=== PATIENT | female | born 2000 | race Native Hawaiian/Other Pacific Islander ===

== ENCOUNTER 2022-04-10 14:44 | Inpatient (IN) | payer OTHER, SELFPAY ==
--- NOTE | 2022-04-10 | ECG_ITS ---
Test Reason : med clearance Blood Pressure : / mmHG Vent. Rate : 064 BPM Atrial Rate : 064 BPM P-R Int : 126 ms QRS Dur : 102 ms QT Int : 446 ms P-R-T Axes : 000 088 057 degrees QTc Int : 460 ms Normal sinus rhythm Normal ECG No previous ECGs available Referred By: Saulo Aguero Electronically Signed By:Vinicius Beck
--- NOTE | 2022-04-10 14:49 | MHC.CARE ---
Dee Dee w [facility] [phone] calls in Expect for Suni Morano 02?? BIBA [address] though cooperative? SI worsening, executive functioning impaired by what Dee Dee describes as a severe eating d/o Hopeless, depressed Googling drugs to use to self euthanize, seeking drugs compatible w the ones animals get Wakes disappointed she hasn?t ? Grades are good, school hasnt been able to force medical leave? She sees Dee Dee for therapy, has [employer], and [facility] monitoring her She is dissociative, scores high for derealization and depersonalization Often smiles, cheerful seeming but describes feeling nothing Has no hx of attempts Has hx of ideation of stepping into traffic and has practiced this via standing on sidewalk and counting cars and trying to determine how successful this attempt method would be She is describes as purging upwards of 20x a day, patient states she overeats, though Dee Dee describes is as a full meal, rather than overeating Her weight is low but her labs tend to be 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
[2022-04-10 14:57] VITALS: BP 126/80; PULSE 68; O2SAT 99
[2022-04-10 15:10] VITALS: BP 117/72; PULSE 83; RESP 18; TEMP 37.1; O2SAT 99; BMI 18.4
--- NOTE | 2022-04-10 15:19 | ED_ITS ---
HPI - Psych General Chief Complaint: Psychiatric Symptoms <Annemarie Murcia NP - Last Filed: 04/10/22 16:35> Stated Complaint: sec 12,si w/plan <Annemarie Murcia NP - Last Filed: 04/10/22 16:35> Time Seen by Provider: 04/10/22 15:07 <Annemarie Murcia NP - Last Filed: 04/10/22 16:35> Source: patient and EMS <Annemarie Murcia NP - Last Filed: 04/10/22 16:35> Mode of arrival: EMS <Annemarie Murcia NP - Last Filed: 04/10/22 16:35> Limitations: no limitations <Annemarie Murcia NP - Last Filed: 04/10/22 16:35> History of Present Illness HPI Narrative: 22-year-old female with a history of anxiety and depression presents to the ER on a Section 12 with complaints of feeling depressed. Patient reports she was recently started on Zoloft. Patient denies suicidal or homicidal ideations. No hallucinations. No substance use. No physical complaints. Per Section 12 there is concerned that patient made suicidal statements and that she was googling medications on how to end her life <Annemarie Murcia NP - Last Filed: 04/10/22 16:35> Related Data Home Medications: Home Medications Medication Instructions Recorded Confirmed sertraline 50 mg tablet 50 mg PO DAILY 04/10/22 04/10/22 spironolactone 100 mg tablet 100 mg PO DAILY 04/10/22 04/10/22 <Annemarie Murcia NP - Last Filed: 04/10/22 16:35> Allergies/Adverse Reactions: Allergies Allergy/AdvReac Type Severity Reaction Status Date / Time pollen extracts Allergy Mild Watery Eye Verified 04/10/22 19:25 <Annemarie Murcia NP - Last Filed: 04/10/22 16:35> Review of Systems Review of Systems: Yes all other systems are reviewed and are negative <Annemarie Murcia NP - Last Filed: 04/10/22 16:35> Constitutional: Constitutional: Reports no additional constitutional complaints, Denies body ache(s), Denies chills, Denies fever(s), Denies headache(s) and Denies weakness <Annemarie Murcia PEDIATRIC ANESTHESIOLOGIST - Last Filed: 04/10/22 16:35> Eyes: Eyes: Reports no additional eye complaints and Denies change in vision <Annemarie Murcia PEDIATRIC ANESTHESIOLOGIST - Last Filed: 04/10/22 16:35> ENT: Reports system reviewed and no additional complaints, except as documented, Denies dizziness, Denies headache(s), Denies nasal congestion, Denies nasal discharge and Denies neck pain <Annemarie Murcia PEDIATRIC ANESTHESIOLOGIST - Last Filed: 04/10/22 16:35> Cardiovascular: Cardiovascular: Reports no additional cardiovascular complaints, Denies chest pain, Denies leg edema and Denies dyspnea <Annemarie Murcia PEDIATRIC ANESTHESIOLOGIST - Last Filed: 04/10/22 16:35> Respiratory: Respiratory: Reports no additional respiratory complaints, Denies cough and Denies dyspnea <Annemarie Murcia PEDIATRIC ANESTHESIOLOGIST - Last Filed: 04/10/22 16:35> Gastrointestinal: Gastrointestinal: Reports no additional gastrointestinal co mplaints, Denies abdominal pain, Denies diarrhea, Denies nausea and Denies vomiting <Annemarie Murcia PEDIATRIC ANESTHESIOLOGIST - Last Filed: 04/10/22 16:35> Genitourinary: Genitourinary: Reports no additional female genitourinary complaints and Denies urinary incontinence <Annemarie Murcia, PEDIATRIC ANESTHESIOLOGIST - Last Filed: 04/10/22 16:35> Musculoskeletal: Musculoskeletal: Reports no additional musculoskeletal complaints, Denies back pain, Denies arthralgias, Denies joint swelling, Denies neck pain, Denies numbness and Denies tingling <Annemarie Murcia PEDIATRIC ANESTHESIOLOGIST - Last Filed: 04/10/22 16:35> Integumentary/Breasts: Skin/Breast: Reports system reviewed and no additional complaints, except as docu and Denies rash <Annemarie Murcia PEDIATRIC ANESTHESIOLOGIST - Last Filed: 04/10/22 16:35> Neurologic: Reports system reviewed and no additional complaints, except as documented, Denies Abnormal speech present, Denies dizziness, Denies headache(s), Denies numbness, Denies tingling and Denies weakness <Annemarie Murcia NP - Last Filed: 04/10/22 16:35> Psychiatric: Psychiatric: Denies anxiety, Reports depression, Denies homicidal ideation and Denies suicidal ideation <Annemarie Murcia NP - Last Filed: 04/10/22 16:35> [facility] Past Medical History Attestation statement: The following information was validated with the patient. <Annemarie Murcia NP - Last Filed: 04/10/22 16:35> Source: old records reviewed and nursing notes reviewed <Annemarie Murcia NP - Last Filed: 04/10/22 16:35> Social History Social History: Social History Household Members: Other Household Members Other:: roommate Housing: Other Housing Other:: dormitory Do you presently have visiting nurse or other home services: No Patient Tobacco Use Status: Never used Tobacco Smoked in Last 30 Days: Yes Frequency of e-Cigarette/Vaping Use: social at parties at school Patient Interested in Nicotine Replacement: No Patient Given Instructions on How to Stop Smoking: Yes Date Education Initiated: 04/10/22 Use of substances other than those prescribed or required for medical reasons: No Currently Displaying Signs/Symptoms of Drug Intoxication Withdrawal: No Have you been hit, kicked, punched, or otherwise hurt by someone within the past year? If so, by whom?: No Do you feel safe in your current relationship?: No Current Relationship Is there a partner from a previous relationship who is making you feel unsafe now?: No Are you made to feel afraid or neglected: No Advance Directives: No Advance Directives Information Provided: No Healthcare Proxy: No Guardian: No Do you have thoughts of harming others: None Do you have a plan to hurt others: No Plan Recently lost weight without trying: No Nutrition Risks: Anorexia and Binging/Purging Patient : No : No Poor oral hygiene: No service: No Sexual orientation: Decline to Answer <Annemarie Murcia NP - Last Filed: 04/10/22 16:35> Physical Exam Vital Signs: Vital Signs: Last Vital Signs Temp 97.9 F 04/12/22 06:00 Pulse 78 04/12/22 06:00 Resp 18 04/12/22 06:00 BP 107/62 04/12/22 06:00 Pulse Ox 99 04/12/22 06:00 O2 Del Method 04/12/22 06:00 BMI result Body Mass Index 18.4 <Annemarie Murcia NP - Last Filed: 04/10/22 16:35> Vital Signs: Last Vital Signs Temp 97.9 F 04/12/22 06:00 Pulse 78 04/12/22 06:00 Resp 18 04/12/22 06:00 BP 107/62 04/12/22 06:00 Pulse Ox 99 04/12/22 06:00 O2 Del Method 04/12/22 06:00 BMI result Body Mass Index 18.4 <Eitan Dow MD - Last Filed: 04/17/22 16:19> Const: General: cooperative, healthy appearing, comfortable and no acute distress <Annemarie Murcia NP - Last Filed: 04/10/22 16:35> Orientation/consciousness: patient oriented x3 <Annemarie Murcia NP - Last Filed: 04/10/22 16:35> Limitations: no limitations <Annemarie Murcia NP - Last Filed: 04/10/22 16:35> HEENT: Head: Yes normal to inspection <Annemarie Murcia NP - Last Filed: 04/10/22 16:35> Ears: hearing grossly normal bilaterally <Annemarie Murcia NP - Last Filed: 04/10/22 16:35> General nose exam: Normal external nose present <Annemarie Murcia NP - Last Filed: 04/10/22 16:35> Face and sinus: Yes normal facial exam <Annemarie Murcia NP - Last Filed: 04/10/22 16:35> Mouth: Normal oral and palatal mucosa present <Annemarie Murcia NP - Last Filed: 04/10/22 16:35> Throat: Yes posterior oropharynx normal <Annemarie Murcia NP - Last Filed: 04/10/22 16:35> Eyes: General: appearance normal, both eyes and all related structures <Annemarie Murcia NP - Last Filed: 04/10/22 16:35> Pupils: Equal, round and reactive pupils present <Annemarie Murcia PEDIATRIC ANESTHESIOLOGIST - Last Filed: 04/10/22 16:35> Neck: Neck: Yes normal visual inspection <Annemarie Murcia PEDIATRIC ANESTHESIOLOGIST - Last Filed: 04/10/22 16:35> Chest: Chest palpation & inspection: normal inspection of the chest <Annemarie Murcia PEDIATRIC ANESTHESIOLOGIST - Last Filed: 04/10/22 16:35> Resp: Effort & Inspection: normal respiratory effort <Annemarie Murcia PEDIATRIC ANESTHESIOLOGIST - Last Filed: 04/10/22 16:35> Auscultation: clear to auscultation bilaterally <Annemarie Murcia PEDIATRIC ANESTHESIOLOGIST - Last Filed: 04/10/22 16:35> Cardio: Rate: regular rate <Annemarie Murcia PEDIATRIC ANESTHESIOLOGIST - Last Filed: 04/10/22 16:35> Rhythm: regular rhythm <Annemarie Murcia PEDIATRIC ANESTHESIOLOGIST - Last Filed: 04/10/22 16:35> Peripheral pulses: Peripheral pulses 2+ throughout <Annemarie Murcia PEDIATRIC ANESTHESIOLOGIST - Last Filed: 04/10/22 16:35> GI: Inspection: Yes normal to inspection <Annemarie Murcia PEDIATRIC ANESTHESIOLOGIST - Last Filed: 04/10/22 16:35> Palpation (GI): Soft to palpation and nontender <Annemarie Murcia PEDIATRIC ANESTHESIOLOGIST - Last Filed: 04/10/22 16:35> Auscultation: normal bowel sounds <Annemarie Murcia PEDIATRIC ANESTHESIOLOGIST - Last Filed: 04/10/22 16:35> Back/Spine/Pelvis: Thoracic/Lumbar Spine: thoracic and lumbar spine normal to inspection <Annemarie Murcia PEDIATRIC ANESTHESIOLOGIST - Last Filed: 04/10/22 16:35> Skin: General skin exam: no rashes or lesions noted <Annemarie Murcia PEDIATRIC ANESTHESIOLOGIST - Last Filed: 04/10/22 16:35> Neuro: General: patient oriented x3, no focal motor deficits and normal sensation to monofilament <Annemarie Murcia PEDIATRIC ANESTHESIOLOGIST - Last Filed: 04/10/22 16:35> Cranial nerves: Yes Equal, round and reactive pupils present <Annemarie Murcia PEDIATRIC ANESTHESIOLOGIST - Last Filed: 04/10/22 16:35> Cognition (Neuro): normal cognition <Annemarie Murcia NP - Last Filed: 04/10/22 16:35> Speech: No Abnormal speech present <Annemarie Murcia NP - Last Filed: 04/10/22 16:35> Gait exam (Neuro): Normal gait present <Annemarie Murcia NP - Last Filed: 04/10/22 16:35> Motor exam (neuro): 5/5 motor strength present throughout <Annemarie Murcia NP - Last Filed: 04/10/22 16:35> Extrem: General: Yes normal to inspection <Annemarie Murcia NP - Last Filed: 04/10/22 16:35> Course Course Course Narrative: Reviewed labs. Patient pending crisis consultation <Annemarie Murcia NP - Last Filed: 04/10/22 16:35> Reevaluation(s) Reevaluation #1: 1800-patient placed in physician observation pending disposition <Annemarie Murcia NP - Last Filed: 04/10/22 16:35> Medications Administered Discontinued Medications Generic Name Dose Route Start Last Admin Trade Name Freq PRN Reason Stop Dose Admin Sertraline HCl 50 mg 04/11/22 14:40 04/12/22 09:39 Sertraline Hcl 50 Mg Tablet PO 50 mg DAILY LAKSHMI Administration Trazodone HCl 50 mg 04/11/22 21:00 04/11/22 22:39 Trazodone Hcl 50 Mg Tablet PO Not Given BEDTIME LAKSHMI <Annemarie Murcia NP - Last Filed: 04/10/22 16:35> Medications Administered Discontinued Medications Generic Name Dose Route Start Last Admin Trade Name Freq PRN Reason Stop Dose Admin Sertraline HCl 50 mg 04/11/22 14:40 04/12/22 09:39 Sertraline Hcl 50 Mg Tablet PO 50 mg DAILY LAKSHMI Administration Trazodone HCl 50 mg 04/11/22 21:00 04/11/22 22:39 Trazodone Hcl 50 Mg Tablet PO Not Given BEDTIME LAKSHMI <Eitan Dow MD - Last Filed: 04/17/22 16:19> Medical Decision Making Medical Decision Making MDM Narrative: 22-year-old female here on a Section 12. Patient denies SI but there is concern for SI on the Section 12. No concern for acute ingestion or trauma No physical complaints Obtain labs, drug screen, COVID screen Once medically cleared will need crisis consultation <Annemarie Murcia NP - Last Filed: 04/10/22 16:35> Differential Diagnosis Differential Diagnoses: The differential diagnosis associated with the presentation includes <Annemarie Murcia NP - Last Filed: 04/10/22 16:35> Depression <Annemarie Murcia NP - Last Filed: 04/10/22 16:35> Consult Healthcare Provider Management of the patient was discussed with: Behavioral Health Provider <Annemarie Murcia NP - Last Filed: 04/10/22 16:35> Lab Data [facility] Lab Attestation statement: I reviewed the patient's lab results. <Annemarie Murcia NP - Last Filed: 04/10/22 16:35> Result Diagrams: 04/10/22 15:57 04/10/22 15:57 <Annmearie Murcia NP - Last Filed: 04/10/22 16:35> Labs: Lab Results 04/10/22 04/10/22 04/10/22 Range/Units 15:12 15:12 15:12 WBC (4.8-10.8) X10*3/uL RBC (4.20-5.50) X10*6/uL Hgb (12.0-16.0) g/dl Hct (37.0-47.0) % MCV (80.0-98.0) fL MCH (27.0-33.0) pg MCHC (31.0-35.0) g/dl RDW (11.0-16.0) % Plt Count (160-400) X10*3/uL MPV (9.4-12.3) fL Absolute Nucleated RBC (0.0-0.012) X10*3/uL Nucleated RBC % (auto) (0.0-0.2) /100WBC Neutrophils % (Manual) (45-73) % Band Neutrophils % (3-5) % Lymphocytes % (Manual) (20-40) % Monocytes % (Manual) (2-11) % Eosinophils % (Manual) (0-4) % Abs Neuts (Manual) (2.0-8.3) X10*3/uL Lymphocytes # (Manual) (1.2-4.9) X10*3/uL Monocytes # (Manual) (0.1-1.2) X10*3/uL Platelet Estimate (NORMAL) Plt Morphology Comment RBC Morphology Basophilic Stippling /OIF Ethel Cells /OIF Acanthocytes (Spur) /OIF Sodium (135-145) mmol/L Potassium (3.3-5.1) mmol/L Chloride (96-108) mmol/L Carbon Dioxide (22-29) mmol/L Anion Gap (12-20) BUN (9-16) mg/dL Creatinine (0.5-1.4) mg/dL Estim Creat Clear Calc Estimated GFR Random Glucose (60-115) mg/dL Calcium (8.4-10.2) mg/dL Total Bilirubin (0.0-1.0) mg/dL AST (5-31) U/L ALT (0-31) U/L Alkaline Phosphatase (39-117) U/L Total Protein (6.5-8.0) g/dL Albumin (3.5-5.0) g/dL Urine Color Yellow Urine Appearance Turbid Urine pH 8.5 (5.0-9.0) Ur Specific [place] 1.020 (1.005-1.025) Urine Protein Trace (Neg-Trace) mg/dL Urine Glucose (UA) Negative (Negative) mg/dL Urine Ketones Negative (Negative) mg/dL Urine Blood Negative (Negative) Urine Nitrite Negative (Negative) Ur Leukocyte Esterase Trace H (Negative) Urine RBC 0-2 (0-2) /HPF Urine WBC 0-5 (0-5) /HPF Ur Squamous Epith Cells 3-5 (0-2) /HPF Urine Bacteria None Seen (None Seen) Hyaline Casts 0-2 (0-2) /LPF Urine Test NEGATIVE (NEGATIVE) Salicylates (15-30) mg/dL Urine Opiates Screen Not Detected (Not Detect) Urine Fentanyl Screen Not Detected (Not Detect) Acetaminophen (<30) mcg/mL Ur Barbiturates Screen Not Detected (Not Detect) Ur Phencyclidine Scrn Not Detected (Not Detect) Ur Amphetamines Screen Not Detected (Not Detect) U Benzodiazepines Scrn Not Detected (Not Detect) Urine Cocaine Screen Not Detected (Not Detect) U Marijuana (THC) Screen Not Detected (Not Detect) Ethyl Alcohol mg/dL COVID-19 (EDITA) (Negative) COVID-19 Clin Com 04/10/22 04/10/22 04/10/22 Range/Units 15:22 15:57 15:57 WBC 4.2 L (4.8-10.8) X10*3/uL RBC 4.06 L (4.20-5.50) X10*6/uL Hgb 12.1 (12.0-16.0) g/dl Hct 34.9 L (37.0-47.0) % MCV 86.0 (80.0-98.0) fL MCH 29.8 (27.0-33.0) pg MCHC 34.7 (31.0-35.0) g/dl RDW 11.8 (11.0-16.0) % Plt Count 244 (160-400) X10*3/uL MPV 9.8 (9.4-12.3) fL Absolute Nucleated RBC 0.000 (0.0-0.012) X10*3/uL Nucleated RBC % (auto) 0.0 (0.0-0.2) /100WBC Neutrophils % (Manual) 63 (45-73) % Band Neutrophils % 1 L (3-5) % Lymphocytes % (Manual) 32 (20-40) % Monocytes % (Manual) 3 (2-11) % Eosinophils % (Manual) 1 (0-4) % Abs Neuts (Manual) 2.7 (2.0-8.3) X10*3/uL Lymphocytes # (Manual) 1.3 (1.2-4.9) X10*3/uL Monocytes # (Manual) 0.1 (0.1-1.2) X10*3/uL Platelet Estimate NORMAL (NORMAL) Plt Morphology Comment NORMAL RBC Morphology NOTED Basophilic Stippling 1+ (0-2) /OIF Roxi Cells 1+ (0-2) /OIF Acanthocytes (Spur) 1+ (0-2) /OIF Sodium 141 (135-145) mmol/L Potassium 4.2 (3.3-5.1) mmol/L Chloride 107 (96-108) mmol/L Carbon Dioxide 27 (22-29) mmol/L Anion Gap 11 L (12-20) BUN 10 (9-16) mg/dL Creatinine 0.86 (0.5-1.4) mg/dL Estim Creat Clear Calc 75.2 Estimated GFR > 60 Random Glucose 91 (60-115) mg/dL Calcium 9.5 (8.4-10.2) mg/dL Total Bilirubin 1.4 H (0.0-1.0) mg/dL AST 17 (5-31) U/L ALT 12 (0-31) U/L Alkaline Phosphatase 35 L (39-117) U/L Total Protein 7.2 (6.5-8.0) g/dL Albumin 4.6 (3.5-5.0) g/dL Urine Color Urine Appearance Urine pH (5.0-9.0) Ur Specific [place] (1.005-1.025) Urine Protein (Neg-Trace) mg/dL Urine Glucose (UA) (Negative) mg/dL Urine Ketones (Negative) mg/dL Urine Blood (Negative) Urine Nitrite (Negative) Ur Leukocyte Esterase (Negative) Urine RBC (0-2) /HPF Urine WBC (0-5) /HPF Ur Squamous Epith Cells (0-2) /HPF Urine Bacteria (None Seen) Hyaline Casts (0-2) /LPF Urine Test (NEGATIVE) Salicylates (15-30) mg/dL Urine Opiates Screen (Not Detect) Urine Fentanyl Screen (Not Detect) Acetaminophen (<30) mcg/mL Ur Barbiturates Screen (Not Detect) Ur Phencyclidine Scrn (Not Detect) Ur Amphetamines Screen (Not Detect) U Benzodiazepines Scrn (Not Detect) Urine Cocaine Screen (Not Detect) U Marijuana (THC) Screen (Not Detect) Ethyl Alcohol < 10 mg/dL COVID-19 (EDITA) Negative (Negative) COVID-19 Clin Com See Note 04/10/22 Range/Units 15:57 WBC (4.8-10.8) X10*3/uL RBC (4.20-5.50) X10*6/uL Hgb (12.0-16.0) g/dl Hct (37.0-47.0) % MCV (80.0-98.0) fL MCH (27.0-33.0) pg MCHC (31.0-35.0) g/dl RDW (11.0-16.0) % Plt Count (160-400) X10*3/uL MPV (9.4-12.3) fL Absolute Nucleated RBC (0.0-0.012) X10*3/uL Nucleated RBC % (auto) (0.0-0.2) /100WBC Neutrophils % (Manual) (45-73) % Band Neutrophils % (3-5) % Lymphocytes % (Manual) (20-40) % Monocytes % (Manual) (2-11) % Eosinophils % (Manual) (0-4) % Abs Neuts (Manual) (2.0-8.3) X10*3/uL Lymphocytes # (Manual) (1.2-4.9) X10*3/uL Monocytes # (Manual) (0.1-1.2) X10*3/uL Platelet Estimate (NORMAL) Plt Morphology Comment RBC Morphology Basophilic Stippling /OIF Ethel Cells /OIF Acanthocytes (Spur) /OIF Sodium (135-145) mmol/L Potassium (3.3-5.1) mmol/L Chloride (96-108) mmol/L Carbon Dioxide (22-29) mmol/L Anion Gap (12-20) BUN (9-16) mg/dL Creatinine (0.5-1.4) mg/dL Estim Creat Clear Calc Estimated GFR Random Glucose (60-115) mg/dL Calcium (8.4-10.2) mg/dL Total Bilirubin (0.0-1.0) mg/dL AST (5-31) U/L ALT (0-31) U/L Alkaline Phosphatase (39-117) U/L Total Protein (6.5-8.0) g/dL Albumin (3.5-5.0) g/dL Urine Color Urine Appearance Urine pH (5.0-9.0) Ur Specific [place] (1.005-1.025) Urine Protein (Neg-Trace) mg/dL Urine Glucose (UA) (Negative) mg/dL Urine Ketones (Negative) mg/dL Urine Blood (Negative) Urine Nitrite (Negative) Ur Leukocyte Esterase (Negative) Urine RBC (0-2) /HPF Urine WBC (0-5) /HPF Ur Squamous Epith Cells (0-2) /HPF Urine Bacteria (None Seen) Hyaline Casts (0-2) /LPF Urine Test (NEGATIVE) Salicylates < 5.0 L (15-30) mg/dL Urine Opiates Screen (Not Detect) Urine Fentanyl Screen (Not Detect) Acetaminophen < 17 (<30) mcg/mL Ur Barbiturates Screen (Not Detect) Ur Phencyclidine Scrn (Not Detect) Ur Amphetamines Screen (Not Detect) U Benzodiazepines Scrn (Not Detect) Urine Cocaine Screen (Not Detect) U Marijuana (THC) Screen (Not Detect) Ethyl Alcohol mg/dL COVID-19 (EDITA) (Negative) COVID-19 Clin Com <Annemarie Murcia, PEDIATRIC ANESTHESIOLOGIST - Last Filed: 04/10/22 16:35> Lab Results 04/10/22 04/10/22 04/10/22 Range/Units 15:12 15:12 15:12 WBC (4.8-10.8) X10*3/uL RBC (4.20-5.50) X10*6/uL Hgb (12.0-16.0) g/dl Hct (37.0-47.0) % MCV (80.0-98.0) fL MCH (27.0-33.0) pg MCHC (31.0-35.0) g/dl RDW (11.0-16.0) % Plt Count (160-400) X10*3/uL MPV (9.4-12.3) fL Absolute Nucleated RBC (0.0-0.012) X10*3/uL Nucleated RBC % (auto) (0.0-0.2) /100WBC Neutrophils % (Manual) (45-73) % Band Neutrophils % (3-5) % Lymphocytes % (Manual) (20-40) % Monocytes % (Manual) (2-11) % Eosinophils % (Manual) (0-4) % Abs Neuts (Manual) (2.0-8.3) X10*3/uL Lymphocytes # (Manual) (1.2-4.9) X10*3/uL Monocytes # (Manual) (0.1-1.2) X10*3/uL Platelet Estimate (NORMAL) Plt Morphology Comment RBC Morphology Basophilic Stippling /OIF Roxi Cells /OIF Acanthocytes (Spur) /OIF Sodium (135-145) mmol/L Potassium (3.3-5.1) mmol/L Chloride (96-108) mmol/L Carbon Dioxide (22-29) mmol/L Anion Gap (12-20) BUN (9-16) mg/dL Creatinine (0.5-1.4) mg/dL Estim Creat Clear Calc Estimated GFR Random Glucose (60-115) mg/dL Calcium (8.4-10.2) mg/dL Total Bilirubin (0.0-1.0) mg/dL AST (5-31) U/L ALT (0-31) U/L Alkaline Phosphatase (39-117) U/L Total Protein (6.5-8.0) g/dL Albumin (3.5-5.0) g/dL Urine Color Yellow Urine Appearance Turbid Urine pH 8.5 (5.0-9.0) Ur Specific [place] 1.020 (1.005-1.025) Urine Protein Trace (Neg-Trace) mg/dL Urine Glucose (UA) Negative (Negative) mg/dL Urine Ketones Negative (Negative) mg/dL Urine Blood Negative (Negative) Urine Nitrite Negative (Negative) Ur Leukocyte Esterase Trace H (Negative) Urine RBC 0-2 (0-2) /HPF Urine WBC 0-5 (0-5) /HPF Ur Squamous Epith Cells 3-5 (0-2) /HPF Urine Bacteria None Seen (None Seen) Hyaline Casts 0-2 (0-2) /LPF Urine Test NEGATIVE (NEGATIVE) Salicylates (15-30) mg/dL Urine Opiates Screen Not Detected (Not Detect) Urine Fentanyl Screen Not Detected (Not Detect) Acetaminophen (<30) mcg/mL Ur Barbiturates Screen Not Detected (Not Detect) Ur Phencyclidine Scrn Not Detected (Not Detect) Ur Amphetamines Screen Not Detected (Not Detect) U Benzodiazepines Scrn Not Detected (Not Detect) Urine Cocaine Screen Not Detected (Not Detect) U Marijuana (THC) Screen Not Detected (Not Detect) Ethyl Alcohol mg/dL COVID-19 (EDITA) (Negative) COVID-19 Clin Com 04/10/22 04/10/22 04/10/22 Range/Units 15:22 15:57 15:57 WBC 4.2 L (4.8-10.8) X10*3/uL RBC 4.06 L (4.20-5.50) X10*6/uL Hgb 12.1 (12.0-16.0) g/dl Hct 34.9 L (37.0-47.0) % MCV 86.0 (80.0-98.0) fL MCH 29.8 (27.0-33.0) pg MCHC 34.7 (31.0-35.0) g/dl RDW 11.8 (11.0-16.0) % Plt Count 244 (160-400) X10*3/uL MPV 9.8 (9.4-12.3) fL Absolute Nucleated RBC 0.000 (0.0-0.012) X10*3/uL Nucleated RBC % (auto) 0.0 (0.0-0.2) /100WBC Neutrophils % (Manual) 63 (45-73) % Band Neutrophils % 1 L (3-5) % Lymphocytes % (Manual) 32 (20-40) % Monocytes % (Manual) 3 (2-11) % Eosinophils % (Manual) 1 (0-4) % Abs Neuts (Manual) 2.7 (2.0-8.3) X10*3/uL Lymphocytes # (Manual) 1.3 (1.2-4.9) X10*3/uL Monocytes # (Manual) 0.1 (0.1-1.2) X10*3/uL Platelet Estimate NORMAL (NORMAL) Plt Morphology Comment NORMAL RBC Morphology NOTED Basophilic Stippling 1+ (0-2) /OIF Roxi Cells 1+ (0-2) /OIF Acanthocytes (Spur) 1+ (0-2) /OIF Sodium 141 (135-145) mmol/L Potassium 4.2 (3.3-5.1) mmol/L Chloride 107 (96-108) mmol/L Carbon Dioxide 27 (22-29) mmol/L Anion Gap 11 L (12-20) BUN 10 (9-16) mg/dL Creatinine 0.86 (0.5-1.4) mg/dL Estim Creat Clear Calc 75.2 Estimated GFR > 60 Random Glucose 91 (60-115) mg/dL Calcium 9.5 (8.4-10.2) mg/dL Total Bilirubin 1.4 H (0.0-1.0) mg/dL AST 17 (5-31) U/L ALT 12 (0-31) U/L Alkaline Phosphatase 35 L (39-117) U/L Total Protein 7.2 (6.5-8.0) g/dL Albumin 4.6 (3.5-5.0) g/dL Urine Color Urine Appearance Urine pH (5.0-9.0) Ur Specific [place] (1.005-1.025) Urine Protein (Neg-Trace) mg/dL Urine Glucose (UA) (Negative) mg/dL Urine Ketones (Negative) mg/dL Urine Blood (Negative) Urine Nitrite (Negative) Ur Leukocyte Esterase (Negative) Urine RBC (0-2) /HPF Urine WBC (0-5) /HPF Ur Squamous Epith Cells (0-2) /HPF Urine Bacteria (None Seen) Hyaline Casts (0-2) /LPF Urine Test (NEGATIVE) Salicylates (15-30) mg/dL Urine Opiates Screen (Not Detect) Urine Fentanyl Screen (Not Detect) Acetaminophen (<30) mcg/mL Ur Barbiturates Screen (Not Detect) Ur Phencyclidine Scrn (Not Detect) Ur Amphetamines Screen (Not Detect) U Benzodiazepines Scrn (Not Detect) Urine Cocaine Screen (Not Detect) U Marijuana (THC) Screen (Not Detect) Ethyl Alcohol < 10 mg/dL COVID-19 (EDITA) Negative (Negative) COVID-19 Clin Com See Note 04/10/22 Range/Units 15:57 WBC (4.8-10.8) X10*3/uL RBC (4.20-5.50) X10*6/uL Hgb (12.0-16.0) g/dl Hct (37.0-47.0) % MCV (80.0-98.0) fL MCH (27.0-33.0) pg MCHC (31.0-35.0) g/dl RDW (11.0-16.0) % Plt Count (160-400) X10*3/uL MPV (9.4-12.3) fL Absolute Nucleated RBC (0.0-0.012) X10*3/uL Nucleated RBC % (auto) (0.0-0.2) /100WBC Neutrophils % (Manual) (45-73) % Band Neutrophils % (3-5) % Lymphocytes % (Manual) (20-40) % Monocytes % (Manual) (2-11) % Eosinophils % (Manual) (0-4) % Abs Neuts (Manual) (2.0-8.3) X10*3/uL Lymphocytes # (Manual) (1.2-4.9) X10*3/uL Monocytes # (Manual) (0.1-1.2) X10*3/uL Platelet Estimate (NORMAL) Plt Morphology Comment RBC Morphology Basophilic Stippling /OIF Ethel Cells /OIF Acanthocytes (Spur) /OIF Sodium (135-145) mmol/L Potassium (3.3-5.1) mmol/L Chloride (96-108) mmol/L Carbon Dioxide (22-29) mmol/L Anion Gap (12-20) BUN (9-16) mg/dL Creatinine (0.5-1.4) mg/dL Estim Creat Clear Calc Estimated GFR Random Glucose (60-115) mg/dL Calcium (8.4-10.2) mg/dL Total Bilirubin (0.0-1.0) mg/dL AST (5-31) U/L ALT (0-31) U/L Alkaline Phosphatase (39-117) U/L Total Protein (6.5-8.0) g/dL Albumin (3.5-5.0) g/dL Urine Color Urine Appearance Urine pH (5.0-9.0) Ur Specific [place] (1.005-1.025) Urine Protein (Neg-Trace) mg/dL Urine Glucose (UA) (Negative) mg/dL Urine Ketones (Negative) mg/dL Urine Blood (Negative) Urine Nitrite (Negative) Ur Leukocyte Esterase (Negative) Urine RBC (0-2) /HPF Urine WBC (0-5) /HPF Ur Squamous Epith Cells (0-2) /HPF Urine Bacteria (None Seen) Hyaline Casts (0-2) /LPF Urine Test (NEGATIVE) Salicylates < 5.0 L (15-30) mg/dL Urine Opiates Screen (Not Detect) Urine Fentanyl Screen (Not Detect) Acetaminophen < 17 (<30) mcg/mL Ur Barbiturates Screen (Not Detect) Ur Phencyclidine Scrn (Not Detect) Ur Amphetamines Screen (Not Detect) U Benzodiazepines Scrn (Not Detect) Urine Cocaine Screen (Not Detect) U Marijuana (THC) Screen (Not Detect) Ethyl Alcohol mg/dL COVID-19 (EDITA) (Negative) COVID-19 Clin Com <Eitan Dow MD - Last Filed: 04/17/22 16:19> Independent Historian Clinical information obtained from an independent historian. History obtained from or confirmed by: EMS <Annemarie Murcia NP - Last Filed: 04/10/22 16:35> External Record Review Patient coming in on Section 12. Reviewed report <Annemarie Murcia NP - Last Filed: 04/10/22 16:35> Attestation Attending Attestation: I reviewed GENERAL LABORER/PA/Resident note, assessment and plan. I agree with the documentation, assessment and plan unless otherwise stated. <Eitan Dow MD - Last Filed: 04/17/22 16:19> Discharge Plan Discharge Clinical Impression: Depression <Annemarie Murcia NP - Last Filed: 04/10/22 16:35> Patient Disposition: Admitted As Inpatient <Annemarie Murcia NP - Last Filed: 04/10/22 16:35> Interventions: Admission Worksheet (ED) Last Done: 04/10/22 23:24 <Annemarie Murcia NP - Last Filed: 04/10/22 16:35> Discharge Date/Time: 04/10/22 23:24 <Annemarie Murcia NP - Last Filed: 04/10/22 16:35>
[2022-04-10 15:31] LABS: Appearance Urine Turbid; Color Urine Yellow; Glucose Urine UA Negative (Negative); Leukocyte Esterase Urine Trace (Negative); Nitrite Urine Negative (Negative); PH 8.5 (5.0-9.0); UMIC TRIGGER UACC YES; Urine Blood Negative (Negative); Urine Ketones Negative (Negative); Urine Protein Trace mg/dL (Neg-Trace)
[2022-04-10 15:37] LABS: Amphetamine Screen Urine Not Detected (Not Detect); Bacteria Urine None Seen (None Seen); Barbiturates, Urine Not Detected (Not Detect); Benzodiazepines Screen Urine Not Detected (Not Detect); Cannabinoid Screen Urine Not Detected (Not Detect); Cocaine Screen Urine Not Detected (Not Detect); Fentanyl, urine Not Detected (Not Detect); Hyaline Casts Urine 0-2 /LPF (0-2); Opiate Screen Urine Not Detected (Not Detect); Phencyclidine Screen Urine Not Detected (Not Detect); RBC Urine 0-2 /HPF (0-2); WBC Urine 0-5 /HPF (0-5)
[2022-04-10 15:41] LABS: COVID-19 Test Negative (Negative); IDNOW Serial# 9DB6401D
[2022-04-10 16:08] LABS: Baso%MD 0.7 %; Eos%MD 1.2 %; Hematocrit 34.9 % (37.0-47.0); Hemoglobin 12.1 g/dl (12.0-16.0); IG%MD 0.2 %; Lymph%MD 33.1 %; Mean Corpuscular HGB Conc 34.7 g/dl (31.0-35.0); Mean Corpuscular Hemoglobin 29.8 pg (27.0-33.0); Mean Platelet Volume 9.8 fL (9.4-12.3); Mono%MD 5.9 %; Neut%MD 58.9 %; Platelet Count 244 X10*3/uL (160-400); Red Blood Count 4.06 X10*6/uL (4.20-5.50); Red Cell Distribution Width 11.8 % (11.0-16.0); White Blood Count 4.2 X10*3/uL (4.8-10.8)
[2022-04-10 16:28] LABS: Acetaminophen LAB < 17 mcg/mL (<30); Alanine Aminotransferase 12 U/L (0-31); Albumin Level 4.6 g/dL (3.5-5.0); Alkaline Phosphatase 35 U/L (39-117); Anion Gap 11 (12-20); Aspartate Amino Transferase 17 U/L (5-31); Bilirubin Total 1.4 mg/dL (0.0-1.0); Blood Urea Nitrogen 10 mg/dL (9-16); Calcium 9.5 mg/dL (8.4-10.2); Carbon Dioxide 27 mmol/L (22-29); Chloride 107 mmol/L (96-108); Creatinine Clr Calc Pharmacy 75.2; Estimated Glomerular Filt Rate > 60; Ethanol < 10 mg/dL; Glucose Random 91 mg/dL (60-115); Potassium 4.2 mmol/L (3.3-5.1); Salicylate < 5.0 mg/dL (15-30); Sodium 141 mmol/L (135-145); Total Protein 7.2 g/dL (6.5-8.0)
--- OUTSIDE RECORDS SUMMARY | 2022-04-10 16:36 | XMS_ITS | Clinical Summary ---
:2000 Author Organization [facility] Address [address] [place] [address] Phone Care Team Providers Name Role Phone Fanta PENG, Felisha Willingham Unavailable [phone] Reason for Visit and Chief Complaint visit for: routine adult H&P Problems Includes: Problems addressed during this encounter and other active Problems Current Visit Onset Date Resolved Date Provider Condition Sta tus Eating Disorder Binge 08/30/2021 Felisha Jewell MD Active Last Documented On 11/03/2021 10:11PM ; [facility] Alopecia 08/30/2021 Felisha Jewell MD Active Last Documented On 11/03/2021 10:11PM ; [facility] Past Visits Onset Date Resolved Date Provider Condition Stat us Scoliosis, unspecified 03/21/2019 Activ e Last Documented On 03/20/2020 12:50PM ; [facility] Note: Scoliosis: [facility] Acute atopic conjunctivitis, unspecified eye 08/27/2010 Active Last Documented On 03/20/2020 12:50PM ; [facility] Not e: Allergic conjunctivitis: [facility] Allergic rhinitis, unspecified 08/27/2010 Active Last Documented On 03/20/2020 12:50PM ; [facility] e: Allergic Rhinitis: [facility] Plan of Treatment - Follow-up visit in the fall for influenza vaccine - Last Documented On 11/03/2021 10:10PM ; [facility] - Follow-up visit in one year for next W ell Check - Last Documented On 11/03/2021 10:10PM ; [facility] Physician/RV REPAIRER/PA Free Notes: 1. Refer to psychologist for binge eatin g disorder 2. Refer to certified prosthetist/orthotist for follow up of alopecia. - Last Documented On 11/03/2021 10:10PM ; [facility] Referrals To Diagnosis Psychology Binge eating disorde r Last Documented On 08/30/2021 12:30PM ; [facility] Dermatology Nonscarring hair los s, unspecified Last Documented On 08/30/2021 12:30PM ; [facility] Instructions to patient Maintain a healthy diet with balanced nu trition and adequate calcium, vitamin D, and iron intake Last Documented On 11/03/2021 10:09PM ; [facility] Education and Decision Aids were provide d during visit for: Anticipatory guidance: routine guidance given and questions answered Last Documented On 08/30/2021 11:15AM ; [facility] Anticipatory guidance: Discussed transit ioning to adult health care practitioner Last Documented On 11/03/2021 10:09PM ; [facility] Pediatric anticipatory guidance handout given ([facility] [employer]) Last Documented On 08/30/2021 11:15AM ; [facility] Discussed use of vitamins Last Documented On 11/03/2021 10:09PM ; [facility] Discussed establishing a dental home and seeing dentist every 6 months Last Documented On 11/03/2021 10:09PM ; [facility] Discussed sexuality and safety with educ ation given regarding STI prevention, contraception, and safer sex, including abstinence Last Documented On 11/03/2021 10:09PM ; [facility] Discussed career plans Last Documented On 11/03/2021 10:09PM ; [facility] Recommendation to undertake activity kavya ly Last Documented On 11/03/2021 10:09PM ; [facility] Patient education about mental health in adolescence, including anxiety and depression Last Documented On 11/03/2021 10:09PM ; [facility] Patient education about self-examination of breasts and breast health Last Documented On 11/03/2021 10:09PM ; [facility] Education, guidance, and counseling give n regarding pelvic exam and PAP smear guidelines Last Documented On 11/03/2021 10:09PM ; [facility] Education, guidance, and counseling give n regarding the topics of alcohol, tobacco, and recreational drug use, including abs tinence Last Documented On 11/03/2021 10:09PM ; [facility] Assessments Includes: Assessments from this encounter Findings - Routine adult history and physical (18 -64 yrs) with abnormal findings - Last Documented On 11/03/2021 10:10PM ; [facility] - Allergic rhinitis - Last Documented On 11/03/2021 10:10PM ; [facility] - Alopecia - Last Documented On 11/04/19 10:10PM ; [facility] - Binge eating disorder - Last Documente d On 11/03/2021 10:10PM ; [facility] Instructions Includes: Instructions from this encounter Instructions to patient Maintain a healthy diet with balanced nu trition and adequate calcium, vitamin D, and iron intake Last Documented On 11/03/2021 10:09PM ; [facility] Education and Decision Aids were provide d during visit for: Anticipatory guidance: routine guidance given and questions answered Last Documented On 08/30/2021 11:15AM ; [facility] Anticipatory guidance: Discussed transit ioning to adult health care practitioner Last Documented On 11/03/2021 10:09PM ; [facility] Pediatric anticipatory guidance handout given ([facility] [employer]) Last Documented On 08/30/2021 11:15AM ; [facility] Discussed use of vitamins Last Documented On 11/03/2021 10:09PM ; [facility] Discussed establishing a dental home and seeing dentist every 6 months Last Documented On 11/03/2021 10:09PM ; [facility] Discussed sexuality and safety with educ ation given regarding STI prevention, contraception, and safer sex, including abstinence Last Documented On 11/03/2021 10:09PM ; [facility] Discussed career plans Last Documented On 11/03/2021 10:09PM ; [facility] Recommendation to undertake activity kavya ly Last Documented On 11/03/2021 10:09PM ; [facility] Patient education about mental health in adolescence, including anxiety and depression Last Documented On 11/03/2021 10:09PM ; [facility] Patient education about self-examination of breasts and breast health Last Documented On 11/03/2021 10:09PM ; [facility] Education, guidance, and counseling give n regarding pelvic exam and PAP smear guidelines Last Documented On 11/03/2021 10:09PM ; [facility] Education, guidance, and counseling give n regarding the topics of alcohol, tobacco, and recreational drug use, including abs tinence Last Documented On 11/03/2021 10:09PM ; [facility] Medical Equipment - Implanted Devices Includes: Current DevicesNo Medical Equipment Recorded Medications Includes: Medications discussed during this encounter and other current Medications Past Medications on file Azithromycin 250 MG OR TABS 02/05/2019 - 02/10/2019 Provider: Diagnosis: take 2 tablets (500 mg) by oral route once daily for 1 day t Last Documented On 03/20/2020 11:39AM By Conversion User ; [facility] Fluticasone Propionate 50 MCG/ACT NA SUSP 08/12/2011 - 2 Provider: Diagnosis: spray 1 spray in each nostril by intranasal route once daily Last Documented On 03/20/2020 11:39AM By Conversion User ; [facility] Patanol 0.1% OP SOLN 06/04/2011 - 12/31/2011 Provider: Diagnosis: instill 1 drop into both eyes by ophthalmic route 2 times pe Last Documented On 03/20/2020 11:39AM By Conversion User ; [facility] Clarinex 5 MG OR TABS 08/27/2010 - 09/26/2010 Provider: Diagnosis: take 1 tablet (5 mg) by oral route once daily for 30 days NE Last Documented On 03/20/2020 11:39AM By Conversion User ; [facility] Polytrim 46028-6.1 UNIT/ML-% OP SOLN 08/27/2010 - 09/03/2010 Pro vider: Diagnosis: 1 drop bilateral eyes TID x 7 days Last Documented On 03/20/2020 11:39AM By Conversion User ; [facility] Patanol 0.1% OP SOLN 08/27/2010 - 08/22/2011 Provider: Diagnosis: instill 1 drop into both eyes by ophthalmic route 2 times pe Last Documented On 03/20/2020 11:39AM By Conversion User ; [facility] Polytrim 74371-3.1 UNIT/ML-% OP SOLN 08/09/2010 - 08/16/2010 Pro vider: Diagnosis: 1 drop bilateral eyes TID x 7 days Last Documented On 03/20/2020 11:39AM By Conversion User ; [facility] Azithromycin 200 MG/5ML OR SUSR 08/09/2010 - 08/14/2010 Provider : Diagnosis: take 7.5 milliliters (200 mg) by oral route once daily for 1 Last Documented On 03/20/2020 11:39AM By Conversion User ; [facility] Medications Administered Includes: Administered Medications from this encounterNo Administered Medications Recorded Vital Signs Includes: Vital Signs from this encounter Vital Name 08/30/2021 11:23A 08/30/2021 11:21A Blood Pressure Sitting (mmHg) 100/58 Height (in) 61.4172 Weight (lb) 118.88426 Body Mass Index (kg/m2) 22.1 BMI Percentile (percentile) 54 Body Surface Area (m2) 1.5 Last Documented On: 08/30/2021 11:25AM ; [facility] Results Includes: Results discussed during this encounterNo Results Recorded For Specified Dates History of Present Illness Includes: History of Present Illness from this encounter DEVI Tirado is a 21 year old female. - Allergy list reviewed - Medication list reviewed - Date of last menstruation 08/20/2021 1. 5 wks ago - Normal menses - Concerns about menstruating no menses from 04/16-07/14 - Questionnaires (Teen Questionnaire) - Questionnaires (Health History Questio nnaire) - In the second year of college [employer], [facility] [facility] [employer] major Physician/RV REPAIRER/PA Notes: Her weight fluctu ates, and was up to 135 lbs, and she was binge eating last year. She has hair loss x 2 years, and saw a certified prosthetist/orthotist and had normal labs in 02/12 Social History Description Last Updated Social history reviewed (last updated: 08/30/21): no alc ohol, tobacco, 08/30/2021 vaping or drug use, no sexual activity Last Documented On 11/03/2021 10:10PM ; [facility] No membership in a club 08/30/2021 Last Documented On 11/03/2021 10:10PM ; [facility] Hiking 08/30/2021 Last Documented On 11/03/2021 10:10PM ; [facility] Leisure activities social activities w/ friends; watch ing youtube 08/30/2021 Last Documented On 11/03/2021 10:10PM ; [facility] Playing golf 08/30/2021 Last Documented On 11/03/2021 10:10PM ; [facility] Social history [facility] - Smokers At Home - No ~ 2020 Last Documented On 08/30/2021 11:21AM ; [facility] Smoking Status Unknown Procedures and Surgical History Includes: Procedures from this encounter Procedures Code Diagnosis Performing Service Service Date Provider Location BMI recorded -ap 3008F Encounter for Felisha Guerra 08/30/2021 general adult MD medical exam w abnormal findings Last Documented On 09/03/2021 6:29AM ; [facility] body mass index documented 3008F Last Documented On 08/30/2021 11:15AM ; [facility] PHQ-9 11 Last Documented On 08/30/2021 11:57AM ; [facility] Surgical History Last Updated [facility] - No Significant Past Surgical History ~ 0 08/09/2010 Last Documented On 08/30/2021 11:21AM ; [facility] Medical History Includes: Medical History addressed during this encounter Description Last Updated Age at menarche was [age] years old 08/30/2021 Last Documented On 11/03/2021 10:10PM ; [facility] Past medical history Normal (Single) (V30.00) ~ 08/09/2010 Last Documented On 08/30/2021 11:21AM ; [facility] Family History Includes: Family History addressed during this encounter Description Last Updated Family medical history Family History Of Environmental Allergy ~ 08/09/2010 Relation: Father ~ Last Documented On 08/30/2021 11:21AM ; [facility] Review of Systems Includes: Review of Systems from this encounter Systemic: No systemic symptoms except as otherwise noted in the HPI or elsewhere in the document. Gastrointestinal: No gastrointestinal sy mptoms except as otherwise noted in the HPI or elsewhere in the document. Genitourinary: No genitourinary symptoms except as otherwise noted in the HPI or elsewhere in the document. Neurological: No neurological symptoms e xcept as otherwise noted in the HPI or elsewhere in the document. Mental Status Includes: Mental Status from this encounterNo Mental Status Recorded Functional Status Includes: Functional Status from this encounterNo Functional Status Recorded Physical Exam Includes: Physical Exam from this encounter Skin: -no skin lesions -the skin general appearance was normal Eyes: -the eyelids showed no abnormalities -the conjunctiva exhibited no abnormalities -the sclera was normal -the extraocular movements were normal -no strabismus was observed -the red retinal reflex was elicited -PERRL Ears, Nose, Throat: -tympanic membrane not bulging -tympanic membrane not erythematous -no nasal discharge -the lips showed no abnormalities -examination of the gums showed no abnormalities -dental no abnormalities -examination of the buccal mucosa showed no abnormalities -examination of the tongue showed no abnormalities -the tonsils showed no abnormalities -the anterior tonsillar pillar was normal -the hard palate was normal -the soft palate was normal -the uvula showed no abnormalities -external auditory canal normal Neck: -the neck demonstrated no decrease in suppleness -the appearance of the neck was normal -palpation of the neck revealed no abnormalities Lungs: -no decrease in breath sounds was heard -unlabored respiration Cardiovascular System: -no murmurs were heard -heart rate and rhythm normal Abdomen: -the abdomen was not distended -abdominal non-tender -the liver was not enlarged -the spleen was not enlarged -the abdomen was soft Female Genitalia: -the external genitalia showed no abnormalities Musculoskeletal System: -no scoliosis -overall findings were normal -normal movement of all extremities Psychiatric Exam: -the appearance was normal -the affect was normal -mood euthymic Neurological System: -gait and stance were normal -reflexes normal Head: -no evidence of a head injury -the head was normocephalic General Status: -well hydrated -alert -in no acute distress -well developed -well nourished Growth And Development: -breast development Florentin stage 5 -female pubic hair Florentin stage 5 Allergies Includes: Active Allergies Substance Type Reaction Onset Date Resolved Date Status POLLENS (TREES, GRASSES, JOSEPH) Allergy Active Last Documented On 08/30/2021 11:21AM ; Note: Imported from external source. [facility] NO KNOWN DRUG ALLERGIES Allergy A ctive Last Documented On 08/30/2021 11:21AM ; Note: Imported from external source. [facility] NO KNOWN FOOD ALLERGIES Allergy Active Last Documented On 08/30/2021 11:21AM ; Note: Imported from external source. [facility] Encounters Encounter Provider Location Date Check-In Time Check-Out Diagno sis Time Well Adolescent Felsiha Guerra 11:10AM 12:07PM Rout ine Check (13+ YR Fanta PENG 2 Histo ry & Well Check) Physical Adult with Abnormal Findings, Alopecia, Eating Disorder Binge, Allergic Rhinitis Insurance Includes: Active Insurance Policies Plan Name Member ID Group # Subscriber Relationship Effective Da bertha 1 - [facility] [id number] Teofilo Tirado Other 1 - Unknown Clinical Notes Includes: Clinical Notes from this encounterNo Clinical Notes Recorded
--- OUTSIDE RECORDS SUMMARY | 2022-04-10 16:36 | XMS_ITS | Continuity of Care Document ---
:2000 Author Organization [facility] Care Team Providers Name Role Phone [facility] Unavailable Unavailable
--- OUTSIDE RECORDS SUMMARY | 2022-04-10 16:36 | XMS_ITS ---
Care Plan - [facility] Created on:April 10, 2022 Patient:Suni Tirado Sex:Female :2000 Author Organization [facility] Address [address] [place] [address] Phone Care Team Providers Name Role Phone Felisha Jewell MD Unavailable [phone]
--- OUTSIDE RECORDS SUMMARY | 2022-04-10 16:36 | XMS_ITS | Clinical Summary ---
:2000 Author Organization [facility] Address [address] [place] [address] Phone Care Team Providers Name Role Phone Fanta PENG, Felisha Willingham Unavailable [phone] Reason for Visit and Chief Complaint EHR Chart Update Problems Includes: Problems addressed during this encounter and other active Problems Current Visit Onset Date Resolved Date Provider Condition Sta tus Eating Disorder Binge 08/30/2021 Felisha Jewell MD Active Last Documented On 11/03/2021 10:11PM ; [facility] Alopecia 08/30/2021 Felisha Jewell MD Active Last Documented On 11/03/2021 10:11PM ; [facility] Past Visits Onset Date Resolved Date Provider Condition Stat us Scoliosis, unspecified 03/21/2019 Activ e Last Documented On 03/20/2020 12:50PM ; [facility] Acute atopic conjunctivitis, unspecified eye 08/27/2010 Active Last Documented On 03/20/2020 12:50PM ; [facility] e: Allergic conjunctivitis: [facility] Allergic rhinitis, unspecified 08/27/2010 Active Last Documented On 03/20/2020 12:50PM ; [facility] e: Allergic Rhinitis: [facility] Plan of Treatment No Plan of Treatment Recorded Assessments Includes: Assessments from this encounterNo Assessments Recorded Medical Equipment - Implanted Devices Includes: Current DevicesNo Medical Equipment Recorded Medications Administered Includes: Administered Medications from this encounterNo Administered Medications Recorded Results Includes: Results discussed during this encounterNo Results Recorded For Specified Dates History of Present Illness Includes: History of Present Illness from this encounterNo History of Present Illness Recorded Social History No Social History Recorded - Smoking Status Unknown Medical History Includes: Medical History addressed during this encounterNo Medical History Recorded Family History Includes: Family History addressed during this encounterNo Family History Recorded Review of Systems Includes: Review of Systems from this encounterNo Review of Systems Recorded Mental Status Includes: Mental Status from this encounterNo Mental Status Recorded Functional Status Includes: Functional Status from this encounterNo Functional Status Recorded Physical Exam Includes: Physical Exam from this encounterNo Physical Exam Recorded Allergies Includes: Active Allergies Substance Type Reaction Onset Date Resolved Date Status POLLENS (TREES, GRASSES, JOSEPH) Allergy Active Last Documented On 08/30/2021 11:21AM ; Note: Imported from external source. [facility] NO KNOWN DRUG ALLERGIES Allergy A ctive Last Documented On 08/30/2021 11:21AM ; Note: Imported from external source. [facility] NO KNOWN FOOD ALLERGIES Allergy Active Last Documented On 08/30/2021 11:21AM ; Note: Imported from external source. [facility] Encounters Encounter Provider Location Date Check-In Time Check-Out Time D iagnosis EHR Chart Felisha Guerra 11/03/2021 10:10PM 11:59PM Update Fanta PENG Insurance Includes: Active Insurance Policies Plan Name Member ID Group # Subscriber Relationship Effective Da bertha 1 - [facility] [id number] Teofilo Tirado Other 1 - Unknown Clinical Notes Includes: Clinical Notes from this encounterNo Clinical Notes Recorded
--- OUTSIDE RECORDS SUMMARY | 2022-04-10 16:36 | XMS_ITS | Clinical Summary ---
:2000 Author Organization [facility] Address [address] [place] [address] Phone Care Team Providers Name Role Phone Felisha Jewell MD Unavailable [phone] Reason for Visit and Chief Complaint EHR Chart Update Problems Includes: Problems addressed during this encounter and other active Problems All Visits Onset Date Resolved Date Provider Condition Stat Eating Disorder Binge 08/30/2021 Felisha Jewell MD Active Last Documented On 11/03/2021 10:11PM ; [facility] Alopecia 08/30/2021 Felisha Jewell MD Active Last Documented On 11/03/2021 10:11PM ; [facility] Scoliosis, unspecified 03/21/2019 Activ e Last Documented On 03/20/2020 12:50PM ; [facility] Note: Scoliosis: [facility] Acute atopic conjunctivitis, unspecified eye 08/27/2010 Active Last Documented On 03/20/2020 12:50PM ; [facility] e: Allergic conjunctivitis: [facility] Allergic rhinitis, unspecified 08/27/2010 Active Last Documented On 03/20/2020 12:50PM ; [facility]: Allergic Rhinitis: [facility] Plan of Treatment No Plan of [...] Exam from this encounterNo Physical Exam Recorded Immunizations Includes: Immunizations addressed during this encounter Vaccine Dose # Date Site Reaction(s) Status Source COVID 12+YO 1 06/10/2020 Complete (Reported) Patie nt MONOVALENT Pfizer 30/0.3 217 Last Documented On 06/12/2020 8:37AM ; [facility]: [facility] Allergies Includes: Active Allergies Substance Type Reaction Onset Date Resolved Date Status POLLENS (TREES, GRASSES, JOSEPH) Allergy Active Last Documented On 08/30/2021 11:21AM ; Note: Imported from external source. [facility] NO KNOWN DRUG ALLERGIES Allergy A ctive Last Documented On 08/30/2021 11:21AM ; Note: Imported from external source. [facility] NO KNOWN FOOD ALLERGIES Allergy Active Last Documented On 08/30/2021 11:21AM ; Note: Imported from external source. [facility] Encounters Encounter Provider Location Date Check-In Time Check-Out Time D iagnosis EHR Chart Katharina Guerra 8:36AM 11:59PM Update Malachi PENG 1 Insurance Includes: Active Insurance Policies Plan Name Member ID Group # Subscriber Relationship Effective Da bertha 1 - [facility] [id number] Teofilo Tirado Other 1 - Unknown Clinical Notes Includes: Clinical Notes from this encounterNo Clinical Notes Recorded
--- OUTSIDE RECORDS SUMMARY | 2022-04-10 16:36 | XMS_ITS | Clinical Summary ---
:2000 Author Organization [facility] Address [address] [place] [address] Phone Care Team Providers Name Role Phone Felisha Jewell MD Unavailable [phone] Reason for Visit and Chief Complaint [Patient Encounter] Problems Includes: Problems addressed during this encounter and other active Problems All Visits Onset Date Resolved Date Provider Condition Stat Eating Disorder Binge 08/30/2021 Felisha Jewell MD Active Last Documented On 11/03/2021 10:11PM ; [facility] Alopecia 08/30/2021 Felisha Jewell MD Active Last Documented On 11/03/2021 10:11PM ; [facility] Scoliosis, unspecified 03/21/2019 Activ e Last Documented On 03/20/2020 12:50PM ; [facility]: [facility] Acute atopic conjunctivitis, unspecified eye 08/27/2010 Active Last Documented On 03/20/2020 12:50PM ; [facility] Not e: Allergic conjunctivitis: [facility] Allergic rhinitis, unspecified 08/27/2010 Active Last Documented On 03/20/2020 12:50PM ; [facility] Not e: Allergic Rhinitis: [facility] Plan of Treatment [...] History of Present Illness Recorded Social History Description Last Updated Social history 03/22/2020 Last Documented On 03/22/2020 2:18AM ; [facility] Social history 03/22/2020 Last Documented On 03/22/2020 2:18AM ; [facility] Social history 03/22/2020 Last Documented On 03/22/2020 2:18AM ; [facility] Smoking Status Unknown Procedures and Surgical History Surgical History Last Updated Past medical/surgical history [use for free text] 07/24 Last Documented On 08/09/2010 11:40AM ; [facility] Medical History Includes: Medical History addressed during this encounter Description Last Updated Past medical history 03/21/2019 Last Documented On 03/21/2019 11:57AM ; [facility] Past medical history 02/10/2019 Last Documented On 02/10/2019 10:24AM ; [facility] Past medical history 06/04/2011 Last Documented On 06/04/2011 1:23PM ; [facility] Past medical history 08/27/2010 Last Documented On 08/27/2010 11:00PM ; [facility] Past medical history 08/27/2010 Last Documented On 08/27/2010 10:59PM ; [facility] Past medical history 08/09/2010 Last Documented On 08/09/2010 12:04PM ; [facility] Past medical history 08/09/2010 Last Documented On 08/09/2010 11:40AM ; [facility] Family History Includes: Family History addressed during this encounter Description Last Updated Family medical history 08/09/2010 Last Documented On 08/09/2010 11:40AM ; [facility] Family medical history 08/09/2010 Last Documented On 08/09/2010 11:40AM ; [facility] Family medical history 08/09/2010 Last Documented On 08/09/2010 11:40AM ; [facility] Family medical history 08/09/2010 Last Documented On 08/09/2010 11:39AM ; [facility] Review of Systems Includes: Review of [...] Note: Imported from external source. [facility] NO KNOWN DRUG ALLERGIES Allergy A ctive Last Documented On 08/30/2021 11:21AM ; Note: Imported from external source. [facility] NO KNOWN FOOD ALLERGIES Allergy Active Last Documented On 08/30/2021 11:21AM ; Note: Imported from external source. [facility] Encounters Encounter Provider Location Date Check-In Time Check-Out Time D iagnosis [Patient Leonor Saavedra 03/22/2020 12:00AM 11:59PM Encounter] Rudolph PENG Insurance Includes: Active Insurance Policies Plan Name Member ID Group # Subscriber Relationship Effective Da bertha 1 - [facility] [id number] Teofilo Tirado Other 1 - Unknown Clinical Notes Includes: Clinical Notes from this encounterNo Clinical Notes Recorded
--- OUTSIDE RECORDS SUMMARY | 2022-04-10 16:36 | XMS_ITS ---
:2000 Author Organization [facility] Address [address] [place] [address] Phone Care Team Providers Name Role Phone Felisha Jewell MD Unavailable [phone] Problems Includes: Active, inactive, and resolved Problems All Visits Onset Date Resolved Date Provider Condition Stat Eating Disorder Binge 08/30/2021 Felisha Jewell MD Active Last Documented On 11/03/2021 10:11PM ; [facility] Alopecia 08/30/2021 Felisha Jewell MD Active Last Documented On 11/03/2021 10:11PM ; [facility] Scoliosis, unspecified 03/21/2019 Activ e Last Documented On 03/20/2020 12:50PM ; [facility] Note: Scoliosis: [facility] Acute atopic conjunctivitis, unspecified eye 08/27/2010 Active Last Documented On 03/20/2020 12:50PM ; Pediatrics Not e: Allergic conjunctivitis: [facility] Allergic rhinitis, unspecified 08/27/2010 Active Last Documented On 03/20/2020 12:50PM ; Pediatrics Not e: Allergic Rhinitis: [facility] Plan of Treatment Findings Encounter Date Physician/[employer]ER/PA Free Notes: 1. Refer Well Adolescent Check (13+ YR Well 08/30/2021 to psychologist for binge eating Check) with Felisha alvarado MD disorder 2. Refer to regional account director for follow up of alopecia Last Documented On 11/03/2021 10:10PM ; [facility] Follow-up visit in the fall for Well Adolescent Check (13+ Y R Well 08/30/2021 influenza vaccine Check) with Felisha Jewell MD Last Documented On 11/03/2021 10:10PM ; [facility] Follow-up visit in one year for next Well Adolescent Check ( 13+ YR Well 08/30/2021 Well Check Check) with Felisha Jewell MD Last Documented On 11/03/2021 10:10PM ; [facility] Referrals To Diagnosis Psychology Binge eating disorde r Last Documented On 08/30/2021 12:30PM ; [facility] Dermatology Nonscarring hair los s, unspecified Last Documented On 08/30/2021 12:30PM ; [facility] Instructions to patient Maintain a healthy diet with balanced nu trition and adequate calcium, vitamin D, and iron intake Last Documented On 11/03/2021 10:09PM ; [facility] Education and Decision Aids were provide d during visit for: Anticipatory guidance: routine guidance given and questions answered Last Documented On 08/30/2021 11:15AM ; [facility] Anticipatory guidance: Discussed transit ioning to adult health care practitioner Last Documented On 11/03/2021 10:09PM ; [facility] Pediatric anticipatory guidance handout given ([facility] Tool [employer] Maker/Designer) Last Documented On 08/30/2021 11:15AM ; [facility] Discussed use of vitamins Last Documented On 11/03/2021 10:09PM ; [facility] Discussed establishing a dental home and seeing dentist every 6 months Last Documented On 11/03/2021 10:09PM ; [facility] Discussed sexuality and safety with educ ation given regarding STI prevention, contraception, and safer sex, including abstinence Last Documented On 11/03/2021 10:09PM ; [facility] Discussed career plans Last Documented On 11/03/2021 10:09PM ; [facility] Recommendation to undertake activity kavya ly Last Documented On 11/03/2021 10:09PM ; [facility] Patient education about mental health in adolescence, including anxiety and depression Last Documented On 11/03/2021 10:09PM ; [facility] Patient education about self-examination of breasts and breast health Last Documented On 11/03/2021 10:09PM ; [facility] Education, guidance, and counseling give n regarding pelvic exam and PAP smear guidelines Last Documented On 11/03/2021 10:09PM ; [facility] Education, guidance, and counseling give n regarding the topics of alcohol, tobacco, and recreational drug use, including abs tinence Last Documented On 11/03/2021 10:09PM ; [facility] Assessments Includes: Assessments for all patient encounters Findings Encounter Date Allergic rhinitis Well Adolescent Check (13+ YR Well Check ) with Felisha Willingham 08/30/2021 Fanta PENG Last Documented On 11/03/2021 10:10PM ; [facility] Alopecia Well Adolescent Check (13+ YR Well Check ) with Felisha Jewell 08/30/2021 Last Documented On 11/03/2021 10:10PM ; [facility] Binge eating disorder Well Adolescent Check (13+ YR Well Ashleigh ck) with 08/30/2021 Felisha Jewell MD Last Documented On 11/03/2021 10:10PM ; [facility] Routine adult history and physical Well Adolescent Check (13 + YR Well 08/30/2021 (18-64 yrs) with abnormal findings Check) with Felisha glasgow MD Last Documented On 11/03/2021 10:10PM ; [facility] Instructions Includes: Instructions for all patient encounters Instructions to patient Maintain a healthy diet with balanced nu trition and adequate calcium, vitamin D, and iron intake Last Documented On 11/03/2021 10:09PM ; [facility] Education and Decision Aids were provide d during visit for: Anticipatory guidance: routine guidance given and questions answered Last Documented On 08/30/2021 11:15AM ; [facility] Anticipatory guidance: Discussed transit ioning to adult health care practitioner Last Documented On 11/03/2021 10:09PM ; [facility] Pediatric anticipatory guidance handout given ([facility] [employer] And [employer] Maker/Designer) Last Documented On 08/30/2021 11:15AM ; [facility] Discussed use of vitamins Last Documented On 11/03/2021 10:09PM ; [facility] Discussed establishing a dental home and seeing dentist every 6 months Last Documented On 11/03/2021 10:09PM ; [facility] Discussed sexuality and safety with educ ation given regarding STI prevention, contraception, and safer sex, including abstinence Last Documented On 11/03/2021 10:09PM ; [facility] Discussed career plans Last Documented On 11/03/2021 10:09PM ; [facility] Recommendation to undertake activity kavya ly Last Documented On 11/03/2021 10:09PM ; [facility] Patient education about mental health in adolescence, including anxiety and depression Last Documented On 11/03/2021 10:09PM ; [facility] Patient education about self-examination of breasts and breast health Last Documented On 11/03/2021 10:09PM ; [facility] Education, guidance, and counseling give n regarding pelvic exam and PAP smear guidelines Last Documented On 11/03/2021 10:09PM ; [facility] Education, guidance, and counseling give n regarding the topics of alcohol, tobacco, and recreational drug use, including abs tinence Last Documented On 11/03/2021 10:09PM ; [facility] Medical Equipment - Implanted Devices Includes: Current and historical DevicesNo Medical Equipment Recorded Medications Includes: Current and historical Medications Past Medications on file Azithromycin 250 MG OR TABS 02/05/2019 - 02/10/2019 Provider: Diagnosis: take 2 tablets (500 mg) by oral route once daily for 1 day t Last Documented On 03/20/2020 11:39AM By Conversion User ; [facility] Fluticasone Propionate 50 MCG/ACT NA SUSP 08/12/2011 - 2 Provider: Diagnosis: spray 1 spray in each nostril by intranasal route once daily Last Documented On 03/20/2020 11:39AM By Conversion User ; [facility] Patanol 0.1% OP SOLN 06/04/2011 - 12/31/2011 Provider: Diagnosis: instill 1 drop into both eyes by ophthalmic route 2 times pe Last Documented On 03/20/2020 11:39AM By Conversion User ; [facility] Clarinex 5 MG OR TABS 06/04/2011 - 03/21/2019 Provider: Diagnosis: take 1 tablet (5 mg) by oral route once daily for 30 days IN Last Documented On 03/20/2020 11:39AM By Conversion User ; [facility] Polytrim 84009-4.1 UNIT/ML-% OP SOLN 06/04/2011 - 03/21/2019 Pro vider: Diagnosis: 1 drop bilateral eyes TID x 7 days Last Documented On 03/20/2020 11:39AM By Conversion User ; [facility] Clarinex 5 MG OR TABS 08/27/2010 - 09/26/2010 Provider: Diagnosis: take 1 tablet (5 mg) by oral route once daily for 30 days IN Last Documented On 03/20/2020 11:39AM By Conversion User ; [facility] Loratadine Allergy Relief 10 MG OR TBDP 08/27/2010 - 08/28/19 Provider: Diagnosis: take 1 tablet (10 mg) and place on top of the tongue where i Last Documented On 03/20/2020 11:39AM By Conversion User ; [facility] [place] 02902-6.1 UNIT/ML-% OP SOLN 08/27/2010 - 09/03/2010 Pro vider: Diagnosis: 1 drop bilateral eyes TID x 7 days Last Documented On 03/20/2020 11:39AM By Conversion User ; [facility] Patanol 0.1% OP SOLN 08/27/2010 - 08/22/2011 Provider: Diagnosis: instill 1 drop into both eyes by ophthalmic route 2 times pe Last Documented On 03/20/2020 11:39AM By Conversion User ; [facility] Azithromycin 200 MG/5ML OR SUSR 08/09/2010 - 02/05/2019 Provider : Diagnosis: take 7.5 milliliters by oral route once daily for 1 day the Last Documented On 03/20/2020 11:39AM By Conversion User ; [facility] [place] 48297-6.1 UNIT/ML-% OP SOLN 08/09/2010 - 08/16/2010 Pro vider: Diagnosis: 1 drop bilateral eyes TID x 7 days Last Documented On 03/20/2020 11:39AM By Conversion User ; [facility] Azithromycin 200 MG/5ML OR SUSR 08/09/2010 - 08/14/2010 Provider : Diagnosis: take 7.5 milliliters (200 mg) by oral route once daily for 1 Last Documented On 03/20/2020 11:39AM By Conversion User ; [facility] Medications Administered Includes: Administered Medications in patient's chartNo Administered Medications Recorded Vital Signs Includes: Vital Signs from 04/10/2021 through 04/10/2022 Vital Name 08/30/2021 11:23A 08/30/2021 11:21A Blood Pressure Sitting (mmHg) 100/58 Height (in) 61.4172 Weight (lb) 118.51099 Body Mass Index (kg/m2) 22.1 BMI Percentile (percentile) 54 Body Surface Area (m2) 1.5 Last Documented On: 08/30/2021 11:25AM ; [facility] Results Includes: Results from 04/10/2021 through 04/10/2022No Results Recorded For Specified Dates History of Present Illness History of Present Illness not supported for this document typeNo History of Present Illness Recorded Social History Description Last Updated Social history reviewed (last updated: 08/30/21): no alc ohol, tobacco, 08/30/2021 vaping or drug use, no sexual activity Last Documented On 11/03/2021 10:10PM ; [facility] No membership in a club 08/30/2021 Last Documented On 11/03/2021 10:10PM ; [facility] Hiking 08/30/2021 Last Documented On 11/03/2021 10:10PM ; [facility] Leisure activities social activities w/ friends; watch ing youtube 08/30/2021 Last Documented On 11/03/2021 10:10PM ; [facility] Playing golf 08/30/2021 Last Documented On 11/03/2021 10:10PM ; [facility] Social history 03/22/2020 Last Documented On 03/22/2020 2:18AM ; [facility] Smoking Status Unknown Procedures and Surgical History Includes: Procedures from 04/10/2021 through 04/10/2022 Procedures Code Diagnosis Performing Service Service Date Provider Location BMI recorded -ap 3008F Encounter for Felisha Guerra 08/30/2021 general adult MD medical exam w abnormal findings Last Documented On 09/03/2021 6:29AM ; [facility] Surgical History Last Updated Past medical/surgical history [use for free text] 07/24 Last Documented On 08/09/2010 11:40AM ; [facility] Medical History Includes: Medical History in patient's chart Description Last Updated Age at menarche was [age] years old 08/30/2021 Last Documented On 11/03/2021 10:10PM ; [facility] Past medical history 08/09/2010 Last Documented On 08/09/2010 11:40AM ; [facility] Family History Includes: Family History in patient's chart Description Last Updated Family medical history 08/09/2010 Last Documented On 08/09/2010 11:39AM ; [facility] Review of Systems Review of Systems not supported for this document typeNo Review of Systems Recorded Mental Status No Mental Status Recorded Functional Status No Functional Status Recorded Physical Exam Physical Exam not supported for this document typeNo Physical Exam Recorded Immunizations Includes: Immunizations in patient's chart Vaccine Dose # Date Site Reaction(s) Status Source COVID 12+YO 1 01/15/2021 Left Deltoid Complete Patient MONOVALENT Pfizer (Reported) 30/0.3 208 Last Documented On 08/30/2021 7:29AM ; [facility] COVID 12+YO MONOVALENT Pfizer 30/0.3 1 06/10/2020 Complete (Reported) Patient 217 Last Documented On 06/12/2020 8:37AM ; [facility]: [facility] DTaP 1 2002 Complete (Reported) Patient Last Documented On 03/19/2020 2:33PM ; [facility] Note: DTaP Pediatrics DTaP 2 2002 Complete (Reported) Patient Last Documented On 03/19/2020 2:33PM ; [facility] Note: DTaP Pediatrics DTaP 3 2002 Complete (Reported) Patient Last Documented On 03/19/2020 2:33PM ; [facility] Note: DTaP Pediatrics DTaP 4 07/03/2003 Complete (Reported) Patient Last Documented On 03/19/2020 2:33PM ; [facility] [employer] panel [employer] [place] Note: DTaP Pediatrics DTaP 5 03/18/2007 Complete (Reported) Patient Last Documented On 03/19/2020 2:33PM ; [facility] [employer] [place] Note: DTaP Pediatrics Hep A 1 04/01/2004 Complete (Reported) Patient Last Documented On 03/19/2020 2:33PM ; [facility] [employer] [place] Note: HepA Pediatrics Hep A 2 05/13/2005 Complete (Reported) Patient Last Documented On 03/19/2020 2:33PM ; [facility] [employer] [place] Note: HepA Pediatrics Hep B 1 2002 Complete (Reported) Patient Last Documented On 03/19/2020 2:33PM ; [facility] [employer] [place] Note: HepB Pediatrics Hep B 2 2002 Complete (Reported) Patient Last Documented On 03/19/2020 2:33PM ; [facility] [employer] [place] Note: HepB Pediatrics Hep B 3 2002 Complete (Reported) Patient Last Documented On 03/19/2020 2:33PM ; [facility] [employer] [place] Note: HepB Pediatrics Hib 1 2002 Complete (Reported) Patient Last Documented On 03/19/2020 2:33PM ; [facility] [employer] [place] Note: Hib Pediatrics Hib 2 2002 Complete (Reported) Patient Last Documented On 03/19/2020 2:33PM ; [facility] [employer] [place] Note: Hib Pediatrics Hib 3 2002 Complete (Reported) Patient Last Documented On 03/19/2020 2:33PM ; [facility] [employer] [place] Note: Hib Pediatrics Hib 4 07/03/2003 Complete (Reported) Patient Last Documented On 03/19/2020 2:33PM ; [facility] [employer] [place] Note: Hib Pediatrics HPV9 1 02/12/2016 Series Complete (Administered ) [facility] Last Documented On 03/19/2020 2:33PM ; [facility] [employer] [place] Note: HPV Pediatrics HPV9 2 04/14/2017 Series Complete (Administered ) [facility] [place] [facility] Last Documented On 03/19/2020 2:33PM ; [facility] [employer] [place] Note: HPV Pediatrics HPV9 3 08/16/2020 Left Deltoid Series Complete (Reporte d) Patient Last Documented On 08/30/2021 7:29AM ; [facility] [place] [facility] Influenza 1 01/12/2003 Complete (Reported) Patient Last Documented On 03/19/2020 2:33PM ; [facility] Note: Influenza [facility] Influenza 2 12/26/2003 Complete (Reported) Patient Last Documented On 03/19/2020 2:33PM ; [facility] Note: Influenza [facility] Influenza 3 01/21/2005 Complete (Reported) Patient Last Documented On 03/19/2020 2:33PM ; [facility] Note: Influenza [facility] Influenza 4 12/23/2012 Complete (Administered) [facility] [place] Last Documented On 03/19/2020 2:33PM ; [facility] Note: Influenza [facility] Influenza 5 01/03/2014 Complete (Administered) [facility] [place] Last Documented On 03/19/2020 2:33PM ; [facility] Note: Influenza [facility] Influenza 6 02/02/2016 Complete (Reported) Patient Last Documented On 03/19/2020 2:33PM ; [facility] [employer] installer Note: Influenza [facility] Influenza 7 04/14/2017 Complete (Administered) [facility] [place] Last Documented On 03/19/2020 2:33PM ; [facility] installer Note: Influenza [facility] Influenza 8 12/03/2018 Complete (Reported) Patient Last Documented On 03/19/2020 2:33PM ; [facility] installer Note: Influenza [facility] IPV 1 2002 Series Complete (Reported) Pa tient Last Documented On 03/19/2020 2:33PM ; [facility] [employer] [place] Note: IPV Pediatrics IPV 2 2002 Series Complete (Reported) Pa tient Last Documented On 03/19/2020 2:33PM ; [facility] [employer] [place] Note: IPV Pediatrics IPV 3 2002 Series Complete (Reported) Pa tient Last Documented On 03/19/2020 2:33PM ; [facility] [employer] [place] Note: IPV Pediatrics IPV 4 03/18/2007 Series Complete (Reported) Pa tient Last Documented On 03/19/2020 2:33PM ; [facility] [employer] [place] Note: IPV Pediatrics Men ACWY 1 02/12/2016 Complete (Administe red) [facility] [place] Last Documented On 03/19/2020 2:33PM ; [facility] panel installer Note: Menactra [place] Men ACWY 2 03/21/2019 Complete (Administe red) [facility] [place] Last Documented On 03/19/2020 2:33PM ; [facility] panel installer Note: Menactra [facility] MMR 1 03/14/2003 Complete (Reported) Patient Last Documented On 03/19/2020 2:33PM ; [facility] [employer] [place] Note: MMR Pediatrics MMR 2 03/18/2007 Complete (Reported) Patient Last Documented On 03/19/2020 2:33PM ; [facility] [employer] [place] Note: MMR Pediatrics PCV7 1 2002 Complete (Reported) Patient Last Documented On 03/19/2020 2:33PM ; [facility] [employer] [place] Note: PCV7 Pediatrics PCV7 2 2002 Complete (Reported) Patient Last Documented On 03/19/2020 2:33PM ; [facility] [employer] [place] Note: PCV7 Pediatrics PCV7 3 2002 Complete (Reported) Patient Last Documented On 03/19/2020 2:33PM ; [facility] [employer] [place] Note: PCV7 Pediatrics PCV7 4 12/26/2003 Complete (Reported) Patient Last Documented On 03/19/2020 2:33PM ; [facility] [employer] [place] Note: PCV7 Pediatrics Tdap 1 07/15/2013 Complete (Administered) [facility] [place] [facility] Last Documented On 03/19/2020 2:33PM ; [facility] [employer] [place] Note: Tdap Pediatrics Varicella 1 03/14/2003 Complete (Reported) Patient Last Documented On 03/19/2020 2:33PM ; [facility] Note: Varicella [facility] Varicella 2 03/18/2007 Complete (Reported) Patient Last Documented On 03/19/2020 2:33PM ; [facility] Allergies Includes: Active, inactive, and resolved Allergies Substance Type Reaction Onset Date Resolved Date Status POLLENS (TREES, GRASSES, JOSEPH) Allergy Active Last Documented On 08/30/2021 11:21AM ; Note: Imported from external source. [facility] NO KNOWN DRUG ALLERGIES Allergy A ctive Last Documented On 08/30/2021 11:21AM ; Note: Imported from external source. [facility] NO KNOWN FOOD ALLERGIES Allergy Active Last Documented On 08/30/2021 11:21AM ; Note: Imported from external source. [facility] Encounters Includes: Encounters from 04/10/2021 through 04/10/2022 Encounter Provider Location Date Check-In Time Check-Out Diagno sis Time EHR Chart Felisha Guerra 10:10PM 08/30/2021 Update Fanta PENG 2 11:59PM Well Adolescent Felisha Willingham [facility] 11:10AM 12:07PM Rout ine Check (13+ YR Fanta PENG 2 Histo ry & Well Check) Physical Adult with Abnormal Findings, Alopecia, Eating Disorder Binge, Allergic Rhinitis EHR Chart Felisha Guerra 7:29AM 11:59PM Update Fanta PENG 2 Insurance Includes: Active Insurance Policies Plan Name Member ID Group # Subscriber Relationship Effective Da bertha 1 - [facility] [id number] Teofilo Tirado Other 1 - Unknown Clinical Notes Includes: Signed Clinical Notes starting from 02/22/2023No Clinical Notes Recorded
--- OUTSIDE RECORDS SUMMARY | 2022-04-10 16:36 | XMS_ITS | Clinical Summary ---
:2000 Author Organization [facility] Address [address] [place] [address] Phone Care Team Providers Name Role Phone Felisha Jewell MD Unavailable [phone] Reason for Visit and Chief Complaint EHR Chart Update Problems Includes: Problems addressed during this encounter and other active Problems All Visits Onset Date Resolved Date Provider Condition Stat Eating Disorder Binge 08/30/2021 Felisha Jewell MD Active Last Documented On 11/03/2021 10:11PM ; [facility] Alopecia 08/30/2021 Felisha Jewell MD Active Last Documented On 11/03/2021 10:11PM ; [facility] Scoliosis, unspecified 03/21/2019 Activ e Last Documented On 03/20/2020 12:50PM ; [facility] Note: Scoliosis: [facility] Acute atopic conjunctivitis, unspecified eye 08/27/2010 Active Last Documented On 03/20/2020 12:50PM ; Pediatrics Not e: Allergic conjunctivitis: [facility] Allergic rhinitis, unspecified 08/27/2010 Active Last Documented On 03/20/2020 12:50PM ; Pediatrics Not e: Allergic Rhinitis: [facility] Plan of Treatment No Plan of [...] On 08/30/2021 7:29AM ; [facility] HPV9 3 08/16/2020 Left Deltoid Complete (Reported) Sari ent Last Documented On 08/30/2021 7:29AM ; [facility] Allergies Includes: Active Allergies Substance Type Reaction Onset Date Resolved Date Status POLLENS (TREES, GRASSES, JOSEPH) Allergy Active Last Documented On 08/30/2021 11:21AM ; Note: Imported from external source. [facility] NO KNOWN DRUG ALLERGIES Allergy A ctive Last Documented On 08/30/2021 11:21AM ; Note: Imported from external source. [facility] NO KNOWN FOOD ALLERGIES Allergy Active Last Documented On 08/30/2021 11:21AM ; Note: Imported from external source. [facility] Encounters Encounter Provider Location Date Check-In Time Check-Out Time D iagnosis EHR Chart Felisha Guerra 08/30/2021 7:29AM 11:59PM Update Fanta PENG Insurance Includes: Active Insurance Policies Plan Name Member ID Group # Subscriber Relationship Effective Da bertha 1 - [facility] [id number] Teofilo Tirado Other 1 - Unknown Clinical Notes Includes: Clinical Notes from this encounterNo Clinical Notes Recorded
--- OUTSIDE RECORDS SUMMARY | 2022-04-10 16:37 | XMS_ITS | Summary of Care ---
:2000 Author Organization [facility] Address [address] [place] [address]- Care Team Providers Name Role Phone None, Assigned Primary Care Physician Unavailable Encounter FNBR [id number] Date(s): 05/29/20 - 05/29/20 [place] [facility] [address] [place] [address]- [facility] Discharge Disposition: *Home () Attending Physician: Cammie Cuellar PA-C Vital Signs Most recent to oldest [Reference Range]: 1 Body Mass Index 20.65 kg/m2 (05/29/20 1:33 PM) Blood Pressure [90-138/60-88 mmHg] 110/60 mmHg (05/29/20 1:33 PM) Peripheral Pulse Rate [50-110 bpm] 80 bpm (05/29/20 1:33 PM) Allergies, Adverse Reactions, Alerts Substance Reaction Severity Status Pollen Itchy skin Unknown Active Itchy eyes Runny nose Medications No Known Medications Results Most recent to oldest [Reference Range]: 1 Neutrophils, Absolute Count [2.00-8.50 x10(9)/L] 2.61 x10(9)/L (05/29/20 2:38 PM) Lymphocytes, Absolute Count [1.00-4.50 x10(9)/L] 1.53 x10(9)/L (05/29/20 2:38 PM) Monocytes, Absolute Count [0.10-0.90 x10(9)/L] 0.29 x1 0(9)/L (05/29/20 2:38 PM) Eosinophils, Absolute Count [0.00-0.50 x10(9)/L] 0.10 x10(9)/L (05/29/20 2:38 PM) Basophils, Absolute Count [0.00-0.20 x10(9)/L] 0.02 x1 0(9)/L (05/29/20 2:38 PM) Estimated Average Glucose 94 *NA* (05/29/20 2:38 PM) Cholesterol Random [<=170 mg/dL] 191 mg/dL *HI* (05/29/20 2:38 PM) Triglyceride Random 103 mg/dL *NA* (05/29/20 2:38 PM) High Density Lipoprotein Random 68 mg/dL *NA* (05/29/20 2:38 PM) Cyanocobalamin, Vitamin B12 [300-816 pg/mL] 859 pg/mL *HI* (05/29/20 2:38 PM) Ferritin Level, Serum [17-266 ng/mL] 92 ng/mL (05/29/20 2:38 PM) IG (undbbzod-wexsx-lpbomsofa), Absolute [0.00-0.03 x10 (9)/L] 0.01 x10(9)/L (05/29/20 2:38 PM) IG (scisaycc-xqsal-rqutgnviz), Percent 0.2 % *NA* (05/29/20 2:38 PM) eGFR (-Egyptian) [60-300 mL/min/1.73m??] >60 mL /min/1.73m?? (05/29/20 2:38 PM) eGFR (NonAfrican-Egyptian) [60-300 mL/min/1.73m??] >60 mL/min/1.73m?? (05/29/20 2:38 PM) Non-HDL Random Calc 123 mg/dL *NA* (05/29/20 2:38 PM) Cholesterol LDL Random Calc 102 mg/dL *NA* (05/29/20 2:38 PM) Immunoglobulin A Serum [63-484 mg/dL] 162 mg/dL (05/29/20 2:38 PM) TTG IgA Ab [0.0-14.9 U/mL] 2.7 U/mL (05/29/20 2:38 PM) Albumin Level [3.5-5.0 g/dL] 4.6 g/dL (05/29/20 2:38 PM) Alkaline Phosphatase [40-150 U/L] 43 U/L (05/29/20 2:38 PM) Anion Gap, Blood [6-14 mmol/L] 8 mmol/L (05/29/20 2:38 PM) Basophils, Percent 0.4 % *NA* (05/29/20 2:38 PM) Bilirubin Total Level [0.2-1.2 mg/dL] 0.9 mg/dL (05/29/20 2:38 PM) Calcium Level [8.7-10.4 mg/dL] 9.3 mg/dL (05/29/20 2:38 PM) Carbon Dioxide Content (CO2) [22-31 mmol/L] 29 mmol/L (05/29/20 2:38 PM) Chloride Level [100-112 mmol/L] 106 mmol/L (05/29/20 2:38 PM) Creatinine, Serum [0.57-1.11 mg/dL] 0.68 mg/dL (05/29/20 2:38 PM) Eosinophils, Percent 2.2 % *NA* (05/29/20 2:38 PM) Glucose Random [75-139 mg/dL] 86 mg/dL (05/29/20 2:38 PM) Neutrophils, Percent 57.2 % *NA* (05/29/20 2:38 PM) Hematocrit [33-45 %] 37 % (05/29/20 2:38 PM) Iron % Saturation [15-50 %] 20 % (05/29/20 2:38 PM) Iron Total [45-165 mcg/dL] 60 mcg/dL (05/29/20 2:38 PM) Lymphocytes, Percent 33.6 % *NA* (05/29/20 2:38 PM) Mean Corpuscular HGB [28-34 pg] 30 pg (05/29/20 2:38 PM) Mean Corpuscular HGB Concentrn [31.5-35.5 g/dL] 32.7 g /dL (05/29/20 2:38 PM) Mean Corpuscular Volume [80-100 fL] 92 fL (05/29/20 2:38 PM) Monocytes, Percent 6.4 % *NA* (05/29/20 2:38 PM) Platelet Count [150-400 x10(9)/L] 265 x10(9)/L (05/29/20 2:38 PM) Potassium Level [3.5-5.3 mmol/L] 3.9 mmol/L (05/29/20 2:38 PM) Total Protein Plasma [6.1-8.0 g/dL] 7.7 g/dL (05/29/20 2:38 PM) RBC Distribution Width [12.0-16.0 %] 11.8 % *LOW* (05/29/20 2:38 PM) Red Blood Cell Count [3.80-5.10 x10(12)/L] 4.04 x10(12 )/L (05/29/20 2:38 PM) Sodium Level [136-146 mmol/L] 143 mmol/L (05/29/20 2:38 PM) Thyroid Stimulating Hormone [0.35-4.94 mIU/L] 1.14 mIU /L (05/29/20 2:38 PM) ALT (SGPT) [<=55 U/L] 20 U/L (05/29/20 2:38 PM) AST (SGOT) [10-40 U/L] 21 U/L (05/29/20 2:38 PM) Transferrin [200-360 mg/dL] 211 mg/dL (05/29/20 2:38 PM) Urea Nitrogen [9-25 mg/dL] 17 mg/dL (05/29/20 2:38 PM) White Blood Cell Count [3.5-11.0 x10(9)/L] 4.6 x10(9)/ L (05/29/20 2:38 PM) Hemoglobin A1c (HbA1c) [4.0-5.6 %] 4.9 % (05/29/20 2:38 PM) Hemoglobin [11.4-15.2 g/dL] 12.2 g/dL (05/29/20 2:38 PM) Iron Binding Capacity, Total [280-504 mcg/dL] 295 mcg/ dL (05/29/20 2:38 PM) Immunizations Given and Recorded Vaccine Date Status Refusal Reason meningococcal conjugate vaccine (MCV4) 03/21/19 Recorded influenza virus vaccine, inactivated 12/03/18 Recorded influenza virus vaccine, inactivated 04/14/17 Recorded influenza virus vaccine, inactivated 02/02/16 Recorded influenza virus vaccine, inactivated 01/03/15 Recorded influenza virus vaccine, inactivated 01/21/05 Recorded influenza virus vaccine, inactivated 12/26/03 Recorded influenza virus vaccine, inactivated 01/12/03 Recorded influenza virus vaccine, inactivated 02 Recorded human papillomavirus vaccine (HPV) 04/14/17 Recorded influenza virus vaccine, live 01/03/14 Recorded tetanus/diphth/pertuss (Tdap) adult/adol 07/15/13 Recorde d varicella virus vaccine 03/18/07 Recorded varicella virus vaccine 03/14/03 Recorded poliovirus vaccine, inactivated (IPV) 03/18/07 Recorded poliovirus vaccine, inactivated (IPV) 02 Recorded poliovirus vaccine, inactivated (IPV) 02 Recorded poliovirus vaccine, inactivated (IPV) 02 Recorded measles/mumps/rubella virus vac (MMR) 03/18/07 Recorded measles/mumps/rubella virus vac (MMR) 03/14/03 Recorded diphtheria/tetanus/pertussis (DTaP) ped 03/18/07 Recorded diphtheria/tetanus/pertussis (DTaP) ped 07/03/03 Recorded diphtheria/tetanus/pertussis (DTaP) ped 02 Recorded diphtheria/tetanus/pertussis (DTaP) ped 02 Recorded diphtheria/tetanus/pertussis (DTaP) ped 02 Recorded hepatitis A pediatric vaccine 05/13/05 Recorded hepatitis A pediatric vaccine 04/01/04 Recorded haemophilus b conjugate (PRP-T) vaccine 07/03/03 Recorded haemophilus b conjugate (PRP-T) vaccine 02 Recorded haemophilus b conjugate (PRP-T) vaccine 02 Recorded haemophilus b conjugate (PRP-T) vaccine 02 Recorded hepatitis B pediatric vaccine 02 Recorded hepatitis B pediatric vaccine 02 Recorded hepatitis B pediatric vaccine 02 Recorded
--- OUTSIDE RECORDS SUMMARY | 2022-04-10 16:37 | XMS_ITS | Summary of Care ---
:2000 Author Organization [facility] Address [address] [address]- Care Team Providers Name Role Phone None, Assigned Primary Care Physician Unavailable Encounter FNBR [id number] Date(s): 08/16/20 - 08/16/20 [facility] [address] [address]- [facility] Discharge Disposition: *Home (01) Attending Physician: Shelton De Leon MD Vital Signs Most recent to oldest [Reference Range]: 1 Temperature (DegF) 97.7 degF (08/16/20 10:05 AM) Body Mass Index 20.28 kg/m2 (08/16/20 10:05 AM) Blood Pressure [90-138/60-88 mmHg] 94/60 mmHg (08/16/20 10:05 AM) Peripheral Pulse Rate [50-110 bpm] 80 bpm (08/16/20 10:05 AM) Problem List Condition Effective Dates Status Health Status Informant Amenorrhea(Confirmed) Active Hair loss(Confirmed) Active Right arm numbness(Confirmed) Active Weight loss(Confirmed) Active Allergies, Adverse Reactions, Alerts Substance Reaction Severity Status Pollen Itchy skin Unknown Active Itchy eyes Runny nose Medications No Known Medications Immunizations Given and Recorded Vaccine Date Status Refusal Reason meningococcal group B vaccine 08/16/20 Given human papillomavirus vaccine (HPV)1 08/16/20 Given human papillomavirus vaccine (HPV) 04/14/17 Recorded SARS-CoV-2 (COVID-19) mRNA BNT-162b2 vax 06/30/20 Recorde d SARS-CoV-2 (COVID-19) mRNA BNT-162b2 vax 06/10/20 Recorde d meningococcal conjugate vaccine (MCV4) 03/21/19 Recorded influenza virus vaccine, inactivated 12/03/18 Recorded influenza virus vaccine, inactivated 04/14/17 Recorded influenza virus vaccine, inactivated 02/02/16 Recorded influenza virus vaccine, inactivated 01/03/15 Recorded influenza virus vaccine, inactivated 01/21/05 Recorded influenza virus vaccine, inactivated 12/26/03 Recorded influenza virus vaccine, inactivated 01/12/03 Recorded influenza virus vaccine, inactivated 02 Recorded influenza virus vaccine, live 01/03/14 Recorded [...] Recorded hepatitis A pediatric vaccine 04/01/04 Recorded pneumococcal 7-valent vaccine (PCV) 12/26/03 Recorded pneumococcal 7-valent vaccine (PCV) 02 Recorded pneumococcal 7-valent vaccine (PCV) 02 Recorded pneumococcal 7-valent vaccine (PCV) 02 Recorded haemophilus b conjugate (PRP-T) vaccine 07/03/03 Recorded haemophilus b conjugate (PRP-T) vaccine 02 Recorded haemophilus b conjugate (PRP-T) vaccine 02 Recorded haemophilus b conjugate (PRP-T) vaccine 02 Recorded hepatitis B pediatric vaccine 02 Recorded hepatitis B pediatric vaccine 02 Recorded hepatitis B pediatric vaccine 02 Recorded 1Early/Late Reason: Early/Late Reason: Other : PER MD
[2022-04-10 18:00] LABS: UPreg QC Valid YES; Urine Pregnancy NEGATIVE (NEGATIVE)
[2022-04-10 18:08] LABS: Band Neutrophils Percent 1 % (3-5); Eosinophils Percent Manual 1 % (0-4); Lymphocytes Absolute Manual 1.3 X10*3/uL (1.2-4.9); Lymphocytes Percent Manual 32 % (20-40); Monocytes Absolute Manual 0.1 X10*3/uL (0.1-1.2); Monocytes Percent Manual 3 % (2-11); Neutrophils Absolute Manual 2.7 X10*3/uL (2.0-8.3); Neutrophils Percent Manual 63 % (45-73)
[2022-04-10 18:12] LABS: Acanthocytes 1+ (0-2) /OIF; Basophilic Stippling 1+ (0-2) /OIF; Burr Cells 1+ (0-2) /OIF; Platelet Estimate NORMAL (NORMAL); Platelet Morphology Comment NORMAL; RBC Morphology NOTED
--- NOTE | 2022-04-10 19:08 | MHC.CARE ---
Pt was seen by the CARE Team and dispo is inpatient and is slated to go M3.
[2022-04-10 23:25] VITALS: BP 127/74; PULSE 67; RESP 16; TEMP 35.9; O2SAT 100
[2022-04-11 02:01] VITALS: BMI 18.7
--- NOTE | 2022-04-11 03:18 | PC.ADMIT ---
Pt is a 22 year old female brought to [facility] on a Section1
--- NOTE | 2022-04-11 03:21 | PC.ADMIT ---
Pt is a 22 yo female brought to [facility] via EMS after disclosing to her therapist at [facility] that she had been googling ways to peacefully end her life. Pt signed a CV upon transfer to [facility] at 2325 on 04/10/2022. Pt denies current medical issues with the exception of bingeing and purging. Pt has a hx of depressive d/o. Pt denies substance use other than ETOH. Pt stated her ETOH use is 2-4 times monthly usually at school parties and her typical drinking pattern is 5-6 drinks each time she drinks. Pt states that she last drank a week ago and she had 6 shots of soju which is a irish liquor. Pt stated she vapes but usually only at parties. Pt denies wanting nicotine replacement. Pt refused the flu shot. 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 Pt's family and her, on school breaks, lives in [place]. Pt states that she typically purges 4-5 times daily but it can be as much as 10 times daily, however crisis assessment states 20 times daily. She has a therapist at [facility]. Pt stated she had been feeling numb to her emotions lately. Pt stated that she was discussing with her therapist that she was googling meds to be able to pass away peacefully. Pt told this technical writer and editor that the whole thing was a misunderstanding. She states that she was at her therapist and was telling her that she always felt that she didn't want to live past 50 especially if she was in pain or having struggles in life referencing her parents. Pt states that she was simply stating to therapist that she felt people should be able to end their lives if they are struggling, sick or otherwise suffering that they should be able to self euthanize. Pt states a dog can be euthanized so why shouldn't we be able to do so. Pt states that she was referring in the future she would do this and not now. However per crisis assessment and her therapist she stated that she was googling meds that would allow self euthanasia. Pt stated to this technical writer and editor that the googling was simply her curiosity. Pt therapist asked her are you actively searching for ways to ? and since this was technically true she told her yes. Pt also reports several dissociative episodes that started in January of last year and that is when depressive symptoms also started. Pt also reports that she doesn't believe that bulimia nervosa is the correct dx for her as she feels that sufferers are usually heavier than she is. 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 Pt thought process is linear and she is quiet and cooperative. Pt signed all FANNIE's including one for her mother and father. Provider extrusion die repair manager notified and orders obtained. Pt is on 15 min safety checks. Pt states that she feels safe in the hospital.
[2022-04-11 06:00] VITALS: BP 108/62; PULSE 90; RESP 18; TEMP 36.6; O2SAT 99
[2022-04-11 09:46] LABS: Estimated Average Glucose 91 mg/dL; Hemoglobin A1c % 4.8 %
[2022-04-11 10:29] LABS: Cholesterol 236 mg/dL; HDL Cholesterol 73 mg/dL; LDL Cholesterol Calculated 140 mg/dl; Triglycerides 119 mg/dL
[2022-04-11 10:57] LABS: Folate 15.7 ng/mL (> or = 4.0); Free T4 (Free Thyroxine) 0.97 ng/dL (0.71-1.85); Thyroid Stimulating Hormone 0.58 uIU/mL (0.32-4.0); Vitamin B12 970 pg/mL (200-900)
--- NOTE | 2022-04-11 13:27 | P.HPPS_ITS ---
HPI Date of Service: 04/11/22 Chief Complaint: Depression, SI, Bulimia, PTSD Sources of Information: patient interviewed, chart reviewed and crisis/core team assessment reviewed HPI Subjective Notes: Bartlett Warning (given and shows understanding) and Conditional Voluntary Narrative: Ms. 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 In the ED, utox is negative. On the unit, pt reports she has struggled with feeling of numbness, derealization, depersonalization for several months. She reports she has increasing feeling of not being worthy of her school because some of her lower grades are Bs, not being good enough in many aspects. Pt reports long standing feeling of not being who she would have liked to be; not pretty enough, not smart enough. She reports engaging in binge eating with purging. She reports she has been working for about one year with her school counselor and thinks there has been some improvement in that she now thinks twice before purging. Pt adamantly denies suicidal ideation or plan or intent to harm herself at this point. However, she states she does not see her self living past 50 years as she reports she does not want to see herself with self hair, or gaining weight. She states that if this is my best years, then she doesn't have much to look forward when she gets older. She reports she feels as if other students at her college look at her as if it was easier for her to be admitted to her school for playing golf. She reports she is currently in good standing and in no danger to fail any class but still feels as if she does not deserve being there because she is not smart enough. She denies hx of VH/AH. She reports fair sleep. She reports taking sertraline for about one month. Past Psychiatric History: Inpatient: none OP: counseling through [facility]. Past trials: sertraline Medical Evaluation Reviewed: Yes [facility] Family History: denies Social History: sophomore in [employer]. She has 3 siblings. Family origi rico from [place]. Substance History: None Trauma History: denies. Diagnostics Vital Signs (24Hr): Vital Signs - 24 hr 02/16/23 15:10 04/10/22 23:25 04/11/22 06:00 Temperature 98.7 F 96.7 F L 97.8 F Pulse Rate 83 67 90 Respiratory Rate 18 16 18 Blood Pressure 117/72 127/74 108/62 Pulse Oximetry 99 100 99 Oxygen Delivery Method Room Air Room Air Room Air BMI result Body Mass Index 18.7 Labs 04/10/22 15:57 04/10/22 15:57 Labs: Laboratory Results - last 48 hr 04/10/22 04/10/22 04/10/22 15:12 15:12 15:12 WBC RBC Hgb Hct MCV MCH MCHC RDW Plt Count MPV Absolute Nucleated RBC Nucleated RBC % (auto) Neutrophils % (Manual) Band Neutrophils % Lymphocytes % (Manual) Monocytes % (Manual) Eosinophils % (Manual) Abs Neuts (Manual) Lymphocytes # (Manual) Monocytes # (Manual) Platelet Estimate Plt Morphology Comment RBC Morphology Basophilic Stippling [place] Cells Acanthocytes (Spur) Sodium Potassium Chloride Carbon Dioxide Anion Gap BUN Creatinine Estim Creat Clear Calc Estimated GFR Random Glucose Estimat Average Glucose Hemoglobin A1c % Calcium Magnesium Total Bilirubin AST ALT Alkaline Phosphatase Total Protein Albumin Triglycerides Cholesterol LDL Cholesterol, Calc HDL Cholesterol Vitamin B12 Folate TSH Free T4 Urine Color Yellow Urine Appearance Turbid Urine pH 8.5 Ur Specific [place] 1.020 Urine Protein Trace Urine Glucose (UA) Negative Urine Ketones Negative Urine Blood Negative Urine Nitrite Negative Ur Leukocyte Esterase Trace H Urine RBC 0-2 Urine WBC 0-5 Ur Squamous Epith Cells 3-5 Urine Bacteria None Seen Hyaline Casts 0-2 Urine Test NEGATIVE Salicylates Urine Opiates Screen Not Detected Urine Fentanyl Screen Not Detected Acetaminophen Ur Barbiturates Screen Not Detected Ur Phencyclidine Scrn Not Detected Ur Amphetamines Screen Not Detected U Benzodiazepines Scrn Not Detected Urine Cocaine Screen Not Detected U Marijuana (THC) Screen Not Detected Ethyl Alcohol COVID-19 (EDITA) COVID-19 Clin Com 04/10/22 04/10/22 04/10/22 15:22 15:57 15:57 WBC 4.2 L RBC 4.06 L Hgb 12.1 Hct 34.9 L MCV 86.0 MCH 29.8 MCHC 34.7 RDW 11.8 Plt Count 244 MPV 9.8 Absolute Nucleated RBC 0.000 Nucleated RBC % (auto) 0.0 Neutrophils % (Manual) 63 Band Neutrophils % 1 L Lymphocytes % (Manual) 32 Monocytes % (Manual) 3 Eosinophils % (Manual) 1 Abs Neuts (Manual) 2.7 Lymphocytes # (Manual) 1.3 Monocytes # (Manual) 0.1 Platelet Estimate NORMAL Plt Morphology Comment NORMAL RBC Morphology NOTED Basophilic Stippling 1+ (0-2) [place] Cells 1+ (0-2) Acanthocytes (Spur) 1+ (0-2) Sodium 141 Potassium 4.2 Chloride 107 Carbon Dioxide 27 Anion Gap 11 L BUN 10 Creatinine 0.86 Estim Creat Clear Calc 75.2 Estimated GFR > 60 Random Glucose 91 Estimat Average Glucose Hemoglobin A1c % Calcium 9.5 Magnesium Total Bilirubin 1.4 H AST 17 ALT 12 Alkaline Phosphatase 35 L Total Protein 7.2 Albumin 4.6 Triglycerides Cholesterol LDL Cholesterol, Calc HDL Cholesterol Vitamin B12 Folate TSH Free T4 Urine Color Urine Appearance Urine pH Ur Specific [place] Urine Protein Urine Glucose (UA) Urine Ketones Urine Blood Urine Nitrite Ur Leukocyte Esterase Urine RBC Urine WBC Ur Squamous Epith Cells Urine Bacteria Hyaline Casts Urine Test Salicylates Urine Opiates Screen Urine Fentanyl Screen Acetaminophen Ur Barbiturates Screen Ur Phencyclidine Scrn Ur Amphetamines Screen U Benzodiazepines Scrn Urine Cocaine Screen U Marijuana (THC) Screen Ethyl Alcohol < 10 COVID-19 (EDITA) Negative COVID-19 Clin Com See Note 04/10/22 04/11/22 04/11/22 15:57 09:24 09:24 WBC RBC Hgb Hct MCV MCH MCHC RDW Plt Count MPV Absolute Nucleated RBC Nucleated RBC % (auto) Neutrophils % (Manual) Band Neutrophils % Lymphocytes % (Manual) Monocytes % (Manual) Eosinophils % (Manual) Abs Neuts (Manual) Lymphocytes # (Manual) Monocytes # (Manual) Platelet Estimate Plt Morphology Comment RBC Morphology Basophilic Stippling [place] Cells Acanthocytes (Spur) Sodium Potassium Chloride Carbon Dioxide Anion Gap BUN Creatinine Estim Creat Clear Calc Estimated GFR Random Glucose Estimat Average Glucose 91 Hemoglobin A1c % 4.8 Calcium Magnesium 2.0 Total Bilirubin AST ALT Alkaline Phosphatase Total Protein Albumin Triglycerides 119 Cholesterol 236 LDL Cholesterol, Calc 140 HDL Cholesterol 73 Vitamin B12 970 H Folate 15.7 TSH 0.58 Free T4 0.97 Urine Color Urine Appearance Urine pH Ur Specific [place] Urine Protein Urine Glucose (UA) Urine Ketones Urine Blood Urine Nitrite Ur Leukocyte Esterase Urine RBC Urine WBC Ur Squamous Epith Cells Urine Bacteria Hyaline Casts Urine Test Salicylates < 5.0 L Urine Opiates Screen Urine Fentanyl Screen Acetaminophen < 17 Ur Barbiturates Screen Ur Phencyclidine Scrn Ur Amphetamines Screen U Benzodiazepines Scrn Urine Cocaine Screen U Marijuana (THC) Screen Ethyl Alcohol COVID-19 (EDITA) COVID-19 Clin Com Meds/Allergies Meds Home Medications Medication Instructions Recorded Confirmed Type sertraline 50 mg tablet 50 mg PO DAILY 04/10/22 04/10/22 History spironolactone 100 mg tablet 100 mg PO DAILY 04/10/22 04/10/22 History Allergies Allergies Allergy/AdvReac Type Severity Reaction Status Date / Time pollen extracts Allergy Mild Watery Eye Verified 04/10/22 19:25 Mental Status Exam Mental Status Exam Narrative: Appearance: casually groomed, wearing mask, in NAD Behavior: somewhat guarded Speech: clear, normal rate/rhythm/volume, spontaneous Psychomotor: no agitation or retardation noted Mood: numbed Affect: blunted, but tearful at times SI: denies HI: denies AH/VH: denies Delusions: none Insight/judgment: poor x 2 Memory/cog: alert, oriented x 3. grossly intact to conversational testing. Assessment & Plan Assessment & Plan (1) MDD (major depressive disorder), recurrent episode, moderate: Status: Acute Code(s): F33.1 - Major depressive disorder, recurrent, moderate (2) Bulimia nervosa, purging type: Status: Acute Code(s): F50.2 - Bulimia nervosa Plan Ms. Tirado is a 22 year-old woman with hx of MDD, eating disorder who was brought from her college due to reporting suicidal ideation, searching on google peaceful ways to although reports not now. Pt noted to have engrained derogatory images about herself than she would not challenged or questions. She denies SI/HI. No plan or intent. Profound negative image of her self, triggering feeling of not being adequate, not worthy. We discussed risks, benefits and alternative treatment options. PLAN 1. Admit to M3, CV, 15 minutes checks for safety. 2. continue sertraline 3. obtain collateral information 4. Aftercare planning. Patient educated on: diagnosis Informed Consent: understands Reason for continued inpatient stay Substantial Risk for: harm to self Statement Statement: I have reviewed the history and physical and performed a pertinent examination on my patient. No changes have occurred unless specified. If the History and Physical was not performed prior to admission, the Hospitalist's service will be consulted for completing the admission phys ical. Time Spent With Patient Time: Total time managing care of this patient today ____ minutes.
[2022-04-11] MEDS: Sertraline HCL 50 MG TABLET PO (14:42)
[2022-04-11 20:00] VITALS: BP 119/60; PULSE 77; RESP 16; TEMP 36.6; O2SAT 100
[2022-04-12 06:00] VITALS: BP 107/62; PULSE 78; RESP 18; TEMP 36.6; O2SAT 99
[2022-04-12] MEDS: Sertraline HCL 50 MG TABLET PO (09:39)
--- NOTE | 2022-04-12 14:24 | P.DS_ITS ---
DS: Providers Provider Date of Service: 04/12/22 Date of admission: 04/10/22 23:13 Primary care physician: Cammie Cuellar DS: Diagnosis Discharge Diagnosis (1) MDD (major depressive disorder), recurrent episode, moderate: Status: Acute (2) Bulimia nervosa, purging type: Status: Acute DS: Medications Discharge Medications Home Medications: Home Medications Medication Instructions Recorded Confirmed sertraline 50 mg tablet 50 mg PO DAILY 04/10/22 04/10/22 spironolactone 100 mg tablet 100 mg PO DAILY 04/10/22 04/10/22 Mental Status Exam Mental Status Exam Narrative: Appearance: casually groomed, wearing mask, in NAD Behavior: somewhat guarded Speech: clear, normal rate/rhythm/volume, spontaneous Psychomotor: no agitation or retardation noted Mood: better Affect: slightly brighter. SI: denies HI: denies AH/VH: denies Delusions: none Insight/judgment: poor x 2 Memory/cog: alert, oriented x 3. grossly intact to conversational testing. Data Data Completed and Pending Completed studies during hospitalization [Text1]: 04/10/22 04/10/22 04/10/22 15:12 15:12 15:12 WBC RBC Hgb Hct MCV MCH MCHC RDW Plt Count MPV Absolute Nucleated RBC Nucleated RBC % (auto) Neutrophils % (Manual) Band Neutrophils % Lymphocytes % (Manual) Monocytes % (Manual) Eosinophils % (Manual) Abs Neuts (Manual) Lymphocytes # (Manual) Monocytes # (Manual) Platelet Estimate Plt Morphology Comment RBC Morphology Basophilic Stippling [place] Cells Acanthocytes (Spur) Sodium Potassium Chloride Carbon Dioxide Anion Gap BUN Creatinine Estim Creat Clear Calc Estimated GFR Random Glucose Estimat Average Glucose Hemoglobin A1c % Calcium Magnesium Total Bilirubin AST ALT Alkaline Phosphatase Total Protein Albumin Triglycerides Cholesterol LDL Cholesterol, Calc HDL Cholesterol Vitamin B12 Folate TSH Free T4 Urine Color Yellow Urine Appearance Turbid Urine pH 8.5 Ur Specific [place] 1.020 Urine Protein Trace Urine Glucose (UA) Negative Urine Ketones Negative Urine Blood Negative Urine Nitrite Negative Ur Leukocyte Esterase Trace H Urine RBC 0-2 Urine WBC 0-5 Ur Squamous Epith Cells 3-5 Urine Bacteria None Seen Hyaline Casts 0-2 Urine Test NEGATIVE Salicylates Urine Opiates Screen Not Detected Urine Fentanyl Screen Not Detected Acetaminophen Ur Barbiturates Screen Not Detected Ur Phencyclidine Scrn Not Detected Ur Amphetamines Screen Not Detected U Benzodiazepines Scrn Not Detected Urine Cocaine Screen Not Detected U Marijuana (THC) Screen Not Detected Ethyl Alcohol COVID-19 (EDITA) COVID-19 Clin Com 04/10/22 04/10/22 04/10/22 15:22 15:57 15:57 WBC 4.2 L RBC 4.06 L Hgb 12.1 Hct 34.9 L MCV 86.0 MCH 29.8 MCHC 34.7 RDW 11.8 Plt Count 244 MPV 9.8 Absolute Nucleated RBC 0.000 Nucleated RBC % (auto) 0.0 Neutrophils % (Manual) 63 Band Neutrophils % 1 L Lymphocytes % (Manual) 32 Monocytes % (Manual) 3 Eosinophils % (Manual) 1 Abs Neuts (Manual) 2.7 Lymphocytes # (Manual) 1.3 Monocytes # (Manual) 0.1 Platelet Estimate NORMAL Plt Morphology Comment NORMAL RBC Morphology NOTED Basophilic Stippling 1+ (0-2) [place] Cells 1+ (0-2) Acanthocytes (Spur) 1+ (0-2) Sodium 141 Potassium 4.2 Chloride 107 Carbon Dioxide 27 Anion Gap 11 L BUN 10 Creatinine 0.86 Estim Creat Clear Calc 75.2 Estimated GFR > 60 Random Glucose 91 Estimat Average Glucose Hemoglobin A1c % Calcium 9.5 Magnesium Total Bilirubin 1.4 H AST 17 ALT 12 Alkaline Phosphatase 35 L Total Protein 7.2 Albumin 4.6 Triglycerides Cholesterol LDL Cholesterol, Calc HDL Cholesterol Vitamin B12 Folate TSH Free T4 Urine Color Urine Appearance Urine pH Ur Specific [place] Urine Protein Urine Glucose (UA) Urine Ketones Urine Blood Urine Nitrite Ur Leukocyte Esterase Urine RBC Urine WBC Ur Squamous Epith Cells Urine Bacteria Hyaline Casts Urine Test Salicylates Urine Opiates Screen Urine Fentanyl Screen Acetaminophen Ur Barbiturates Screen Ur Phencyclidine Scrn Ur Amphetamines Screen U Benzodiazepines Scrn Urine Cocaine Screen U Marijuana (THC) Screen Ethyl Alcohol < 10 COVID-19 (EDITA) Negative COVID-19 Clin Com See Note 04/10/22 04/11/22 04/11/22 15:57 09:24 09:24 WBC RBC Hgb Hct MCV MCH MCHC RDW Plt Count MPV Absolute Nucleated RBC Nucleated RBC % (auto) Neutrophils % (Manual) Band Neutrophils % Lymphocytes % (Manual) Monocytes % (Manual) Eosinophils % (Manual) Abs Neuts (Manual) Lymphocytes # (Manual) Monocytes # (Manual) Platelet Estimate Plt Morphology Comment RBC Morphology Basophilic Stippling [place] Cells Acanthocytes (Spur) Sodium Potassium Chloride Carbon Dioxide Anion Gap BUN Creatinine Estim Creat Clear Calc Estimated GFR Random Glucose Estimat Average Glucose 91 Hemoglobin A1c % 4.8 Calcium Magnesium 2.0 Total Bilirubin AST ALT Alkaline Phosphatase Total Protein Albumin Triglycerides 119 Cholesterol 236 LDL Cholesterol, Calc 140 HDL Cholesterol 73 Vitamin B12 970 H Folate 15.7 TSH 0.58 Free T4 0.97 Urine Color Urine Appearance Urine pH Ur Specific [place] Urine Protein Urine Glucose (UA) Urine Ketones Urine Blood Urine Nitrite Ur Leukocyte Esterase Urine RBC Urine WBC Ur Squamous Epith Cells Urine Bacteria Hyaline Casts Urine Test Salicylates < 5.0 L Urine Opiates Screen Urine Fentanyl Screen Acetaminophen < 17 Ur Barbiturates Screen Ur Phencyclidine Scrn Ur Amphetamines Screen U Benzodiazepines Scrn Urine Cocaine Screen U Marijuana (THC) Screen Ethyl Alcohol COVID-19 (EDITA) COVID-19 Clin Com DS: Summary Hospital Course Hospital Course: Subjective Notes: Bartlett Warning (given and shows understanding) and Conditional Voluntary Narrative: Ms. Tirado is a 22 year-old woman with hx of MDD, eating disorder who was sent from [employer] where she is majoring in [employer] due to reports to her therapist about searching ways of dying peacefully, euthanasia in setting of feeling more depressed in past few months. In the ED, utox is negative. On the unit, pt reports she has struggled with feeling of numbness, derealization, depersonalization for several months. She reports she has increasing feeling of not being worthy of her school because some of her lower grades are Bs, not being good enough in many aspects. Pt reports long standing feeling of not being who she would have liked to be; not pretty enough, not smart enough. She reports engaging in binge eating with purging. She reports she has been working for about one year with her school counselor and thinks there has been some improvement in that she now thinks twice before purging. Pt adamantly denies suicidal ideation or plan or intent to harm herself at this point. However, she states she does not see her self living past 50 years as she reports she does not want to see herself with self hair, or gaining weight. She states that if this is my best years, then she doesn't have much to look forward when she gets older. She reports she feels as if other students at her college look at her as if it was easier for her to be admitted to her school for playing golf. She reports she is currently in good standing and in no danger to fail any class but still feels as if she does not deserve being there because she is not smart enough. She denies hx of VH/AH. She reports fair sleep. She reports taking sertraline for about one month. Past Psychiatric History: Inpatient: none OP: counseling through [facility]. Past trials: sertraline Medical Evaluation Reviewed: Yes HOSPITAL COURSE On the unit, Ms. Tirado was admitted on a CV and placed on 15 minutes checks for safety. Pt adamantly denied suicidal ideation, plan or intent to harm herself. She did endorse depressed mood, low self-esteem, feeling of worthlessness. She also described symptoms consistent with binge eating disorder with purging. Me dical laboratories along with her current weight and BMI did not show imminent harm to self due to restricting eating or electrolyte abnormalities secondary to purging. Pt was given information of effects of eating disorder on her health. Collateral information was gathered from her older sister and parents who reported that Celestino has been struggling with depression, low-self esteem for some years and increasingly engaging in formal treatment. We discussed seeking more specialized treatment outside of [facility], which both family and patient were in agreement. Family denied any safety concerns at time of discharge and advocated for an early discharge as no additional therapeutic benefits would be accomplished while on the unit at this time. After discussing risks, benefits and alternative treatment options, pt agreed to continue sertraline. She slept well. There were no signs of purging, self harm or harm to others. There were no incidences of disruptive behaviors nor need for restraints. Status at Discharge Cognitive/behavioral status at discharge: Pt with bright, non labile affect. No SI/HI. No VH/AH. Pt continues to report depressed mood but presents as more future oriented and denies SI/HI. No signs of aggression towards self or others. Functional status at discharge: independent ambulation Overall status at discharge: patient is progressing back to baseline Time Spent with Patient Time attestation: Total time managing care of this patient today _30___ minutes. Time spent: Greater than 30 minutes Discharge Plan Discharge Anticipated Discharge Date/Time: 04/12/22 14:21 Patient Disposition: Home, Self-Care Discharge Diagnosis: MDD Eating D/O Referrals: Cammie Cuellar [Other] - 1 Week Discharge Medications: Continued spironolactone 100 mg tablet 100 mg PO DAILY sertraline 50 mg tablet 50 mg PO DAILY Discharge Orders: Discharge Order (Routine); Ordered 04/12/22 Ordered By: Ella Hutton Diet: Regular diet Activity on Discharge: As tolerated Stand Alone Forms: Patient Portal Discharge page, Community Support Care Plan Goals: 1. Maintain mood 2. No SI/HI Health Concerns: Follow up with PCP Plan of Treatment: 1. Take medications as prescribed 2. Go to nearest ED or call 911 in event of emergency Assessment: Pt with constricted affect. No SI/HI. No signs of psychosis or delusions. No VH/AH. No signs of aggression towards self or others. Discharge Date/Time: 04/12/22 16:04
--- NOTE | 2022-04-12 14:44 | PC.NURSE ---
Suni is alert, fully oriented, pleasant and cooperative with discharge process. She denies ideation, plan or intent to harm herself or others. She denies physical complaint. She is discharged back to [facility] per Ella Hutton [employer]'s order.
== END 2022-04-12 16:04 | disposition home or self-care (01) | DRG 885 ==
LOC: HO.ED 16:34 → HO.PADLT16 23:15
PROVIDERS: Nurse Practitioner Family; Admitting Provider Clinical Nurse Specialist Psychiatric/Mental Health, Adult; Emergency Provider Emergency Medicine; PCP Student in an Organized Health Care Education/Training Program; Visit Provider Clinical Nurse Specialist Psychiatric/Mental Health, Adult
DX: F33.1 Major depressive disorder, recurrent, moderate (principal); R45.851 Suicidal ideations; F50.2 Bulimia nervosa; Z20.822 Contact with and (suspected) exposure to COVID-19; Z79.899 Other long term (current) drug therapy
CPT/HCPCS: 36415; 80053; 80061; 80143; 80179; 80307; 81001; 81025; 82077; 82607; 82746; 83036; 83735; 84439; 84443; 85007; 85027; 87635; 93005; 99285; S9485